=== PATIENT | female | born 1980 | race Caucasian/White ===

== ENCOUNTER 2025-03-04 07:46 | Observation (INO) ==
--- NOTE | 2025-03-04 08:12 | Emergency Department Note ---
History of Present Illness General Chief complaint: Wound Stated complaint: INFECTION ON CHIN Time Seen by Provider: 03/04/25 08:03 History of Present Illness Maximum Pain Intensity: 6 This is a 44-year-old female who presents to the emergency department via private vehicle with complaints of "infection on chin". The patient states that she thought perhaps there was a small infected hair or similar under the chin last week. However notes that this past Monday morning it was painful with edema and presented to [place] emergency department. She notes a CT scan was performed showing no abscess and she was placed on antibiotics. She continues with progressing symptoms since that time. She does note history of diabetes. No fever. Past Med/Surg History Problem List (Updated 03/04/25 @ 12:53 by Samm Maradiaga PA-C) Submental space infection (Acute) Hypothyroidism Cellulitis (Acute) Medical History No pertinent family history Diabetes HTN (hypertension) Surgical History No pertinent past surgical history Social History Smoking Status: Current every day smoker Tobacco Type: Cigarettes Preferred Language: Marshallese Feels Safe at Home: Yes Review of Systems A total of 10 systems reviewed and were otherwise negative Physical Exam Vital Signs Vital Signs - 24 hr 03/04/25 07:57 03/04/25 09:30 03/04/25 10:30 Temperature 36.3 C L Temperature Source Skin Pulse Rate 102 H Pulse Rate [Apical] 97 H 89 Respiratory Rate 17 16 16 Respiratory Effort / Characteristics Non-Labored Spontaneous Respiratory Depth Normal Normal Blood Pressure 162/86 H Blood Pressure [Right Arm] 161/93 H 134/80 Blood Pressure Mean 111 Blood Pressure Mean [Right Arm] 115 98 Blood Pressure Position [Right Arm] Semi-fowlers Semi-fowlers Pulse Oximetry 99 97 99 Oxygen Delivery Method Room Air Room Air Room Air Sepsis Recent Fever Within 48 Hours No Sepsis New/Unexplained Change in Mental Status N/A Sepsis Action Taken by Nursing No Action Required 03/04/25 10:41 03/04/25 12:00 Temperature Temperature Source Pulse Rate Pulse Rate [Apical] 104 H Respiratory Rate 16 Respiratory Effort / Characteristics Respiratory Depth Blood Pressure Blood Pressure [Right Arm] 159/108 H Blood Pressure Mean Blood Pressure Mean [Right Arm] 125 Blood Pressure Position [Right Arm] Semi-fowlers Pulse Oximetry 97 96 Oxygen Delivery Method Room Air Room Air Sepsis Recent Fever Within 48 Hours Sepsis New/Unexplained Change in Mental Status Sepsis Action Taken by Nursing VITAL SIGNS - Vital signs and nursing notes were reviewed. Hypertensive, otherwise stable and afebrile. GENERAL -44 -year-old female appearing her stated age who is in no acute distress. Communicates well with provider and answers questions appropriately. SKIN -erythema and edema noted with induration throughout the submental region centrally located just inferior to the chin. No immediate fluctuance present on exam. Small open subcentimeter wound without active drainage noted at the inferior most aspect just superior to the chin. HEAD - NC/AT. EYES - PERRL with EOMI bilaterally. Sclera anicteric. EARS - No deformities of external structures noted on gross examination bilaterally. NOSE - Midline and without cyanosis. No epistaxis or purulent drainage noted. MOUTH/OROPHARYNX - Without perioral cyanosis. Buccal mucosa pink and moist and without leukoplakia. Tongue midline with equal elevation of palate bilaterally. No tonsillar hypertrophy, erythema, or exudates noted. Fair dentition noted. NECK - Neck with FROM. Supple to palpation. Bilateral anterior cervical lymphadenopathy noted. No nuchal rigidity. LUNGS - Chest wall symmetric without accessory muscle use, intercostals retractions, or central cyanosis. Normal vesicular breath sounds CTA B/L. No wheezes, rales, or rhonchi appreciated. CARDIAC - RRR EXTREMITIES - +5/5 strength noted in UE/LE bilaterally. NEUROLOGIC - Cranial nerves II through XII grossly intact. PSYCH - alert, oriented and pleasant on exam Course Administered Medications Discontinued Medications Piperacillin Sod/Tazobactam Sod (Zosyn) 4.5 gm in 100 mls @ 200 mls/hr IV NOW ONE; Protocol Stop: 03/04/25 08:44 Last Infusion: 03/04/25 09:45 Dose: Infused Documented By: Admin: 03/04/25 09:06 Dose: 200 mls/hr Documented By: DEON Sodium Chloride (Nss) 1,000 mls @ 999 mls/hr IV .Q1H1M ONE Stop: 03/04/25 09:16 Last Infusion: 03/04/25 11:17 Dose: Infused Documented By: Admin: 03/04/25 09:06 Dose: 999 mls/hr Documented By: DEON Ioversol (Optiray 320 100ml) 94 ml IV ONCE ONE Stop: 03/04/25 10:13 Last Admin: 03/04/25 10:13 Dose: 94 ml Documented By: MIRNA Morphine Sulfate (Morphine Sulfate 4 Mg/Ml 1 Ml Carp\\Vial) 4 mg IV NOW STA Stop: 03/04/25 08:16 Last Admin: 03/04/25 09:06 Dose: 4 mg Documented By: DENO Morphine Sulfate (Morphine Sulfate 2 Mg/Ml Carp) 2 mg IV NOW STA Stop: 03/04/25 11:25 Last Admin: 03/04/25 11:42 Dose: 2 mg Documented By: DEON Ondansetron HCl (Ondansetron Inj 2 Mg/Ml 2 Ml Vial) 4 mg IV NOW STA Stop: 03/04/25 08:16 Last Admin: 03/04/25 09:06 Dose: 4 mg Documented By: DEON Ondansetron HCl (Ondansetron Inj 2 Mg/Ml 2 Ml Vial) 4 mg IV NOW STA Stop: 03/04/25 09:36 Last Admin: 03/04/25 09:51 Dose: 4 mg Documented By: DEON Medical Decision Making Laboratory Data 03/04/25 08:46 03/04/25 08:46 Lab Results 03/04/25 Range/Units 08:46 WBC 13.99 H (4.8-10.8) K/ul RBC 4.39 (4.20-5.40) M/uL Hgb 13.1 (12.0-16.0) g/dl Hct 38.7 (37.0-47.0) % MCV 88.2 (80.0-100.0) fL MCH 29.8 (25.0-34.0) pg MCHC 33.9 (32.0-36.0) g/dL RDW Std Deviation 38.5 (36.4-46.3) fL RDW Coeff of Yanet 11.9 (11.5-14.5) % Plt Count 279 (130-400) K/uL MPV 10.2 (9.4-12.4) fL Immature Gran % (Auto) 0.5 % Neut % (Auto) 79.4 % Lymph % (Auto) 13.3 % [place] % (Auto) 5.2 % Eos % (Auto) 1.0 % Baso % (Auto) 0.6 % Neut # (Auto) 11.11 H (1.40-6.50) K/uL Lymph # (Auto) 1.86 (1.20-3.40) K/uL [place] # (Auto) 0.73 H (0.11-0.59) K/uL Eos # (Auto) 0.14 (0.00-0.50) K/uL Baso # (Auto) 0.08 (0.00-0.20) K/uL Immature Gran # (Auto) 0.07 (0.01-0.20) K/uL Sodium 139 (136-145) mmol/L Potassium 3.5 (3.5-5.1) mmol/L Chloride 106 (98-107) mmol/L Carbon Dioxide 25 (21-32) mmol/L Anion Gap 8 (3-11) BUN 16 (6-23) mg/dl Creatinine 0.82 (0.6-1.2) mg/dl Est Cr Clr Drug Dosing 84.7 ml/min eGFR 90.40 BUN/Creatinine Ratio 19.5 (10-20) Glucose 144 H (70-99(Fasting)) mg/dl Lactate 1.6 (0.4-2.0) mmol/L Calcium 8.8 (8.6-10.3) mg/dl Total Bilirubin 0.6 (0.2-1.0) mg/dl AST 11 L (13-39) U/L ALT 10 (7-52) U/L Alkaline Phosphatase 74 (34-104) U/L Total Protein 6.9 (6.0-8.3) gm/dl Albumin 4.3 (3.4-5.0) gm/dl Globulin 2.6 (2.5-4.0) gm/dl Albumin/Globulin Ratio 1.7 (0.9-2) Procalcitonin 0.03 (0-0.5) ng/ml Imaging Data Radiologist's Impression: Soft Tissue Neck CT 03/04/25 08:29 CT OF THE NECK WITH IV CONTRAST CLINICAL HISTORY: Submental infection, neck pain, facial pain. COMPARISON STUDY: No previous studies for comparison. TECHNIQUE: Following IV administration of 94 mL of Optiray, helical axial images of the neck were obtained. Sagittal and coronal reconstructions were viewed. Automated exposure control was utilized for the study. A dose lowering technique was utilized adhering to the principles of ALARA. CT DOSE: 529.33 mGy.cm FINDINGS: Visualized portions of the intracranial contents are unremarkable. Mastoid air cells are clear. There is a small mucous retention cyst within the right maxillary sinus. No orbital abnormality is identified. Parotid and submandibular glands are normal. Note is made of moderate submental inflammation with a 2.7 cm focus of soft tissue thickening on image 223 of 445. There is associated thickening of the platysma. Skin thickening is noted. There is no soft tissue gas. No rim-enhancing fluid collection is present. There is an associated 6 mm midline hypodense focus within the dermis. No drainable fluid collection is present. Mildly enlarged cervical lymph nodes are present. Index left level 1 lymph node on image 244 measures 1.2 x 1.1 cm. A left level 3 lymph node on image 323 measures 1.3 x 1.1 cm. Thyroid gland is unremarkable. Lung apices are unremarkable. Major vasculature of the neck is patent. There is a periapical lucency of the left maxillary lateral incisor. No adjacent soft tissue abscess is present. IMPRESSION: 1. Moderate submental inflammation with a 2.7 cm focus of soft tissue thickening suggestive of phlegmon. No rim-enhancing fluid collection to suggest abscess. Associated cellulitis. 6 mm left hypodense focus within the dermis may represent a drainage site. No drainable fluid collection. This represents an infectious process. Although no definitive source, this may be odontogenic in etiology. A primary skin infection could appear similar. 2. Several mildly enlarged cervical lymph nodes. These are likely reactive. A follow-up neck CT in 3 months to ensure resolution is recommended. ACT 112: Negative or not required by law. Electronically signed by: Sriram Dickerson M.D. 03/04/2025 10:[address] [facility] Narrative Patient was seen and evaluated as above in room A09b. Review was performed of nursing notes and vital signs. After obtaining a thorough history and physical examination the above work up was performed. Patient presents with the above symptoms. She has edema to the submental region. This is concerning for infection. No drooling, stridor, trismus, wheezing or tripoding. Normal phonation. Options of care were discussed with the patient. IV access was established per labs were drawn. She was medicated with IV antibiotics, IV analgesia and IV antiemetics. IV fluids also ordered. CT scan soft tissue neck was obtained noting no progression of symptoms. Results as above. Moderate submental inflammation with a 2.7 cm focus suggestive of phlegmon. No definitive abscess seen. Cellulitis noted. Lymph node enlargement also noted. At this time noting progression of symptoms despite oral antibiotic therapy we will proceed with IV therapy inpatient. Case discussed with the hospitalist service. Please refer to further documentation regarding her stay. No airway compromise at this time. GCS: 15 In the evaluation and treatment of this patient, the following differential diagnoses were considered: Periapical Abscess, Osteonecrosis of the Jaw, Dental Fracture, Dental Caries, Sy's Angina, Vincent's Angina, Facial Cellulitis, among others Impression & Plan Submental space infection, Cellulitis Discharge Plan Visit Data Chief Complaint: Wound Stated Complaint: INFECTION ON CHIN ED Provider: Roland Sanchez ED Midlevel Provider: Samm Maradiaga Discharge Problem: Submental space infection, Cellulitis Patient Disposition: Admitted As Inpatient Condition: Good Forms Stand Alone Forms: [facility] Referrals Referrals: Emanuel Koenig DO [Primary Care Provider] -
[2025-03-04 09:02] LABS: Hematocrit (blood only) 38.7 % (37.0-47.0); Hemoglobin 13.1 g/dl (12.0-16.0); Immature Granulocytes # (auto) 0.07 K/uL (0.01-0.20); Immature Granulocytes % (auto) 0.5 %; Mean Corpuscular Hemoglobin 29.8 pg (25.0-34.0); Mean Corpuscular Volume 88.2 fL (80.0-100.0); Platelet Count 279 K/uL (130-400); RDW Standard Deviation 38.5 fL (36.4-46.3); Red Blood Count 4.39 M/uL (4.20-5.40); White Blood Count 13.99 K/ul (4.8-10.8)
[2025-03-04] MEDS: PIPERACILLIN/TAZOBACTAM 4.5 GM/100 ML BAG IV ONE (09:06)
[2025-03-04] MEDS: ONDANSETRON INJ 2 MG/ML 2 ML VIAL IV STA ×3 (09:06→14:49)
[2025-03-04] MEDS: SODIUM CHLORIDE 0.9% 1,000 ML IV ONE (09:06)
[2025-03-04] MEDS: MoRPHine SULFATE 4 MG/ML 1 ML CARP\\VIAL IV STA (09:06)
[2025-03-04 09:20] LABS: Alanine Aminotransferase 10.0 U/L (7-52); Albumin Globulin Ratio 1.7 (0.9-2); Albumin Level 4.3 gm/dl (3.4-5.0); Alkaline Phosphatase 74.0 U/L (34-104); Anion Gap 8.0 (3-11); Bilirubin,Total 0.6 mg/dl (0.2-1.0); Blood Urea Nitrogen 16.0 mg/dl (6-23); Calcium 8.8 mg/dl (8.6-10.3); Carbon Dioxide 25.0 mmol/L (21-32); Chloride 106.0 mmol/L (98-107); Creatinine Clr Calc Pharmacy 84.7 ml/min; Globulin 2.6 gm/dl (2.5-4.0); Glucose 144.0 mg/dl (70-99(Fasting)); Potassium 3.5 mmol/L (3.5-5.1); Sodium 139.0 mmol/L (136-145); Total Protein 6.9 gm/dl (6.0-8.3)
[2025-03-04] MEDS: OPTIRAY 320 100ml IV ONE (10:13)
--- NOTE | 2025-03-04 10:37 | CT Scan Report ---
CT OF THE NECK WITH IV CONTRAST CLINICAL HISTORY: Submental infection, neck pain, facial pain. COMPARISON STUDY: No previous studies for comparison. TECHNIQUE: Following IV administration of 94 mL of Optiray, helical axial images of the neck were ob tained. Sagittal and coronal reconstructions were viewed. Automated exposure control was utilized f or the study. A dose lowering technique was utilized adhering to the principles of ALARA. CT DOSE: 529.33 mGy.cm FINDINGS: Visualized portions of the intracranial contents are unremarkable. Mastoid air cells are c lear. There is a small mucous retention cyst within the right maxillary sinus. No orbital abnormality is identified. Parotid and submandibular glands are normal. Note is made of moderate submental infla mmation with a 2.7 cm focus of soft tissue thickening on image 223 of 445. There is associated thicke maryann of the platysma. Skin thickening is noted. There is no soft tissue gas. No rim-enhancing fluid c ollection is present. There is an associated 6 mm midline hypodense focus within the dermis. No drain able fluid collection is present. Mildly enlarged cervical lymph nodes are present. Index left level 1 lymph node on image 244 measures 1.2 x 1.1 cm. A left level 3 lymph node on image 323 measures 1.3 x 1.1 cm. Thyroid gland is unremarkable. Lung apices are unremarkable. Major vasculature of the neck is patent. There is a periapical lucency of the left maxillary lateral incisor. No adjacent soft tiss ue abscess is present. IMPRESSION: 1. Moderate submental inflammation with a 2.7 cm focus of soft tissue thickening suggestive of phlegm on. No rim-enhancing fluid collection to suggest abscess. Associated cellulitis. 6 mm left hypodense focus within the dermis may represent a drainage site. No drainable fluid collection. This represents an infectious process. Although no definitive source, this may be odontogenic in etiology. A primary skin infection could appear similar. 2. Several mildly enlarged cervical lymph nodes. These are likely reactive. A follow-up neck CT in 3 months to ensure resolution is recommended. ACT 112: Negative or not required by law. Electronically signed by: Sriram Dickerson M.D. 03/04/2025 10:35 AM
[2025-03-04] MEDS: MoRPHine SULFATE 2 MG/ML CARP IV STA (11:42)
--- NOTE | 2025-03-04 12:22 | Communication Note ---
Date of Service: March 04, 2025 Attending Addendum: Case reviewed with the advanced practitioner. I have personally performed a history and physical examination on the patient. I have reviewed the advanced practitioner's documentation on the date of service referenced in note, and I agree with, and take responsibility for the plan of care. please refer to her notes for full details patient seen and examined, records reviewed by myself as well on exam, patient seen resting in bed, not in distress having some pain over the submental region but morphine helped no dysphagia, or shortness of breath no tooth pain no other symptoms VS noted and reviewed oriented x3, not in distress, speaks in sentences with no effort nor accessory muscle use neck- small fluctuant mass, mid submental region, with moderate erythema normal rate, regular rhythm, no murmurs clear breath sounds bilaterally non distended, soft, nontender no bipedal edema, erythema, warmth no neuro deficits all labs, imaging noted and reviewed ASSESSMENT AND PLAN> SUBMENTAL CELLULITIS WITH PHLEGMON DM 2 - does not meet sepsis criteria at this point - no definite abscess seen on CT neck - blood cultures ordered - because of location, will give broad coverage: Dapto + Zosyn - Dr Gr consulted - pain control HTN - on Metoprolol other diagnoses and plan of care as per advanced practitioner's notes I spent a total of 40 minutes coordinating, documenting, and providing care for this patient, excluding time spent in the performance of separately billed services or time spent by another provider/QHP. Alonso Montero MD
--- NOTE | 2025-03-04 12:34 | History & Physical Report ---
Date of Service March 04, 2025 Assessment & Plan (1) Submental space infection: (2) Diabetes: (3) HTN (hypertension): Plan 44 y/o F that presents to the ED after experiencing worsening submental pain and spreading of a wound that spontaneously, starting on Friday 03/02. She is a known insulin dependent diabetic. Submental space infection: Worsening submental phlegmon with lymphadenopathy Leukocytosis: 13.99 Lactate normal 1.6 SpO2 97%, continuous pulse ox monitoring Soft Tissue CT: Moderate submental inflammation with a 2.7 cm focus of soft tissue thickening suggestive of phlegmon. No rim-enhancing fluid collection to suggest abscess. Associated cellulitis. 6 mm left hypodense focus within the dermis may represent a drainage site. No drainable fluid collection. This represents an infectious process. Although no definitive source, this may be odontogenic in etiology. A primary skin infection could appear similar. Several mildly enlarged cervical lymph nodes. These are likely reactive. A follow-up neck CT in 3 months to ensure resolution is recommended. Started on Zosyn for pseudomonas coverage. Add IV Dapto for possible MRSA given location MRSA swab ordered for wound Maxillofacial consult with Dr. Gr ordered Insulin Dependent Diabetes, Type 2: Chronic Unknown A1c; check while here Takes Lantus 30 units AM/PM Takes Humalog Kwikpen 15 units SQ TID with meals ACHS FSBS while inpt Glycemic pharmacy HTN: Chronic takes Losartan, Metoprolol and HCTZ; continue Disposition: PCP: Dr. Hernandez Code Status: Full Code VTE prophylaxis: Teds and SCDs for now I spent a total of 78 minutes coordinating, documenting, and providing care for this patient excluding time spent inthe performance of separately billed services or time spent by another provider/QHP. History of Present Illness Chief Complaint: submental pain/wound Primary Care Provider: Emanuel Koenig DO Pt is a 44 year old female that presents to the ED after experiencing worsening submental pain and spreading of a wound that spontaneously occured on Monday03/02/25. She originally went to [facility] and underwent a CT and was given a dose of IV antibiotics and sent home on Bactrim, which she has taken three doses. reportedly, no abscess was identified on the CT scan. Originally the red spot under the chin has progressed into a submental soft tissue erythematous and swollen area. She reports that the wound has worsened over the past 48 hours. She did show photos which revealed that the swelling and wound has progressed. Past medical history includes insulin-dependent diabetes type 2, and HTN. In the ED she was started on IV Zosyn for Pseudomonas coverage and she received 1 L NS. She received Morphine for pain control. Mild leukocytosis 13.99 otherwise labs unremarkable. No elevated lactate, no elevated procalcitonin. Soft tissue neck CT revealed: moderate submental inflammation with a 2.7 cm focus of soft tissue thickening suggestive of phlegmon. No rim-enhancing fluid collection to suggest abscess. Associated cellulitis. 6 mm left hypodense focus within the dermis may represent a drainage site. No drainable fluid collection. This represents an infectious process. Although no definitive source, this may be odontogenic in etiology. A primary skin infection could appear similar. Several mildly enlarged cervical lymph nodes. These are likely reactive. A follow-up neck CT in 3 months to ensure resolution is recommended. Reports tobacco use 1 ppd, no alcohol or recreational drug use. On examination, she No signs of airway compromise at this time, SpO2 97% on room air. Patient will be admitted for further evaluation and management of her soft tissue cellulitis with pain control, blood cultures, MRSA coverage with IV Dapto and oromaxillary surgery consult. Please see A/P for further details. Home Medications Medication Instructions Recorded Confirmed Type Ventolin HFA 90 mcg PO Q4H PRN SOB 03/04/25 03/04/25 History hydrochlorothiazide 25 mg tablet 25 mg PO DAILY 03/04/25 03/04/25 History insulin glargine 100 unit/mL (3 30 unit subcut BID 03/04/25 03/04/25 History mL) subcutaneous pen (Lantus Solostar U-100 Insulin) insulin lispro 100 unit/mL 15 unit subcut TID 03/04/25 03/04/25 History subcutaneous pen (Humalog KwikPen (U-100) Insulin) losartan 50 mg tablet 50 mg PO DAILY 03/04/25 03/04/25 History metoprolol tartrate 50 mg tablet 50 mg PO BID 03/04/25 03/04/25 History sulfamethoxazole 800 1 tab PO BID 03/04/25 03/04/25 History mg-trimethoprim 160 mg tablet tirzepatide 15 mg/0.5 mL 15 mg subcut WK 03/04/25 03/04/25 History subcutaneous pen injector (Mounjaro) Past Med/Surg History Problem List (Updated 03/04/25 @ 12:53 by Samm Maradiaga PA-C) Submental space infection (Acute) Hypothyroidism Cellulitis (Acute) Medical History No pertinent family history Diabetes HTN (hypertension) Surgical History No pertinent past surgical history Social History Smoking Status: Current every day smoker Tobacco Type: Cigarettes Preferred Language: Azerbaijani Feels Safe at Home: Yes Review of Systems Review of Systems: Neuro: (-) Falls, trauma, slurred speech HEENT: (-) MULLINS, dizziness, dysphagia, visual or auditory changes CV: (-) CP, palpitations, swelling Resp: (-) SOB GI: (-) appetite changes, N/V/D, bowel changes : (-) urinary changes Skin: (-) rashes (+) open wound submental (-) malodor Psych: (-) anxiety, depression Physical Exam Physical Exam: Neuro: AAOx4, PERRLA, no aphagia, memory changes, CNII-XII grossly intact. (+) submental lymphadenopathy HEENT: head normocephalic, moist mucus membranes CV: S1/S2, (-) M/G/R, (-) edema, cap refill < 3 seconds Resp: Lungs CTA in all potter. On RA GI: Abdomen S/NT/ND, Ax4 bowel sounds, (-) CVA tenderness Musculoskeletal: 5/5 B/L UE strength, 5/5 B/L LE strength. No gait disturbance Skin: (-) rashes , (+) erythema (+) open eraser sized wound with minimal drainage. Psych: euthymic mood Results & Data Results & Data Vital Signs (Past 12 Hours) Vital Signs Temp Pulse Pulse Resp BP BP Pulse Ox 03/04/25 12:00 104 H 16 159/108 H 96 03/04/25 10:41 97 03/04/25 10:30 89 16 134/80 99 03/04/25 09:30 97 H 16 161/93 H 97 03/04/25 07:57 36.3 C L 102 H 17 162/86 H 99 O2 Del Method 03/04/25 12:00 Room Air 03/04/25 10:41 Room Air 03/04/25 10:30 Room Air 03/04/25 09:30 Room Air 03/04/25 07:57 Room Air Laboratory Results Short CBC 03/04/25 Range/Units 08:46 WBC 13.99 H (4.8-10.8) K/ul Hgb 13.1 (12.0-16.0) g/dl Hct 38.7 (37.0-47.0) % Plt Count 279 (130-400) K/uL BMP 03/04/25 08:46 Sodium 139 Potassium 3.5 Chloride 106 Carbon Dioxide 25 BUN 16 Creatinine 0.82 Glucose 144 H Calcium 8.8 Liver Function 03/04/25 Range/Units 08:46 Total Bilirubin 0.6 (0.2-1.0) mg/dl AST 11 L (13-39) U/L ALT 10 (7-52) U/L Alkaline Phosphatase 74 (34-104) U/L Albumin 4.3 (3.4-5.0) gm/dl Diagnostic Findings Soft Tissue Neck CT 03/04/25 08:29 CT OF THE NECK WITH IV CONTRAST CLINICAL HISTORY: Submental infection, neck pain, facial pain. COMPARISON STUDY: No previous studies for comparison. TECHNIQUE: Following IV administration of 94 mL of Optiray, helical axial images of the neck were obtained. Sagittal and coronal reconstructions were viewed. Automated exposure control was utilized for the study. A dose lowering technique was utilized adhering to the principles of ALARA. CT DOSE: 529.33 mGy.cm FINDINGS: Visualized portions of the intracranial contents are unremarkable. Mastoid air cells are clear. There is a small mucous retention cyst within the right maxillary sinus. No orbital abnormality is identified. Parotid and submandibular glands are normal. Note is made of moderate submental inflammation with a 2.7 cm focus of soft tissue thickening on image 223 of 445. There is associated thickening of the platysma. Skin thickening is noted. There is no soft tissue gas. No rim-enhancing fluid collection is present. There is an associated 6 mm midline hypodense focus within the dermis. No drainable fluid collection is present. Mildly enlarged cervical lymph nodes are present. Index left level 1 lymph node on image 244 measures 1.2 x 1.1 cm. A left level 3 lymph node on image 323 measures 1.3 x 1.1 cm. Thyroid gland is unremarkable. Lung apices are unremarkable. Major vasculature of the neck is patent. There is a periapical lucency of the left maxillary lateral incisor. No adjacent soft tissue abscess is present. IMPRESSION: 1. Moderate submental inflammation with a 2.7 cm focus of soft tissue thickening suggestive of phlegmon. No rim-enhancing fluid collection to suggest abscess. Associated cellulitis. 6 mm left hypodense focus within the dermis may represent a drainage site. No drainable fluid collection. This represents an infectious process. Although no definitive source, this may be odontogenic in etiology. A primary skin infection could appear similar. 2. Several mildly enlarged cervical lymph nodes. These are likely reactive. A follow-up neck CT in 3 months to ensure resolution is recommended. ACT 112: Negative or not required by law. Electronically signed by: Sriram Dickerson M.D. 03/04/2025 10:35 AM Code Status & VTE Plan Code Status Full Code in the event of cardiac or respiratory arrest. VTE Prophylaxis Plan VTE Prophylaxis will be ordered: Yes
[2025-03-04] MEDS: DAPTOmycin 500 MG in SYRINGE 0 ML IV SCH (13:33)
[2025-03-04] MEDS ORDERED: ALUMINUM/MAGNESIUM SUSP 30 ML UDC PO PRN (15:17)
[2025-03-04] MEDS ORDERED: ONDANSETRON INJ 2 MG/ML 2 ML VIAL IV PRN (15:17)
[2025-03-04] MEDS ORDERED: MAGNESIUM HYDROXIDE SUSP 30 ML UDC PO PRN (15:17)
[2025-03-04] MEDS: MoRPHine SULFATE 2 MG/ML CARP IV PRN (15:41)
[2025-03-04] MEDS: hydroCHLOROthiazide 25 MG TAB PO SCH (16:16)
[2025-03-04] MEDS: LOSARTAN POTASSIUM 50 MG TAB PO SCH (16:17)
[2025-03-04] MEDS: INSULIN ASPART PER UNIT CHARGE SQ SCH (17:20)
[2025-03-04] MEDS: LANTUS PER UNIT CHARGE SC SCH (18:45)
[2025-03-04] MEDS: METOPROLOL TARTRATE 50 MG TAB PO SCH (19:48)
[2025-03-05] MEDS: ACETAMINOPHEN 325 MG TAB PO PRN (07:33)
[2025-03-05 08:09] LABS: Hematocrit (blood only) 38.5 % (37.0-47.0); Hemoglobin 13.0 g/dl (12.0-16.0); Mean Corpuscular Hemoglobin 30.2 pg (25.0-34.0); Mean Corpuscular Volume 89.3 fL (80.0-100.0); Platelet Count 294 K/uL (130-400); RDW Standard Deviation 39.0 fL (36.4-46.3); Red Blood Count 4.31 M/uL (4.20-5.40); White Blood Count 9.22 K/ul (4.8-10.8)
[2025-03-05] MEDS: ONDANSETRON INJ 2 MG/ML 2 ML VIAL IV PRN (08:23)
--- NOTE | 2025-03-05 08:29 | Oral/Maxillofacial Consult ---
Date of Consultation March 05, 2025 Assessment & Plan (1) Submental space infection: (2) Cellulitis: History of Present Illness Attending Physician: Sydney Tucker MD History of Present Illness I was asked to consult on this 44-year-old patient with a submental swelling. I reviewed the CT scan and confirmed that it is not coming from an odontogenic origin. As a matter fact her teeth are in extremely good shape. There is no periodontal disease or issues in the floor of the mouth. She does smoke a lot and there is some leukoplakic changes in the anterior floor of the mouth which I discussed with her. Regarding the submental edema this looks to be a lesion such as a small pimple hair follicle that got infected. She showed me some pictures that she took a few days ago showing that it started out as a little red dot and progressed into the overall cellulitis that is present now. I have a suspicion that we are dealing with a MRSA infection. Presently there is no duration to consider a drainage. In my experience a lot of these MRSA like lesions will spontaneously drain therapy and take a few weeks to finally subside with good antibiotic. My plan is to continue to round on Rhianon and consider in a incision and drainage if necessary. I would suggest heat massage and antibiotics as appropriate. Assessment & Plan (1) Submental space infection: (2) Diabetes: (3) HTN (hypertension): Pt is a 44 year old female that presents to the ED after experiencing worsening submental pain and spreading of a wound that spontaneously occured on Monday03/02/25. She originally went to [facility] and underwent a CT and was given a dose of IV antibiotics and sent home on Bactrim, which she has taken three doses. reportedly, no abscess was identified on the CT scan. Originally the red spot under the chin has progressed into a submental soft tissue erythematous and swollen area. She reports that the wound has worsened over the past 48 hours. She did show photos which revealed that the swelling and wound has progressed. Past medical history includes insulin-dependent diabetes type 2, and HTN. In the ED she was started on IV Zosyn for Pseudomonas coverage and she received 1 L NS. She received Morphine for pain control. Mild leukocytosis 13.99 otherwise labs unremarkable. No elevated lactate, no elevated procalcitonin. Soft tissue neck CT revealed: moderate submental inflammation with a 2.7 cm focus of soft tissue thickening suggestive of phlegmon. No rim-enhancing fluid collection to suggest abscess. Associated cellulitis. 6 mm left hypodense focus within the dermis may represent a drainage site. No drainable fluid collection. This represents an infectious process. Although no definitive source, this may be odontogenic in etiology. A primary skin infection could appear similar. Several mildly enlarged cervical lymph nodes. These are likely reactive. A follow-up neck CT in 3 months to ensure resolution is recommended. Reports tobacco use 1 ppd, no alcohol or recreational drug use. On examination, she No signs of airway compromise at this time, SpO2 97% on room air. Patient will be admitted for further evaluation and management of her soft tissue cellulitis with pain control, blood cultures, MRSA coverage with IV Dapto and oromaxillary surgery consult. Please see A/P for further details. Submental space infection: Worsening submental phlegmon with lymphadenopathy Leukocytosis: 13.99 Lactate normal 1.6 SpO2 97%, continuous pulse ox monitoring Soft Tissue CT: Moderate submental inflammation with a 2.7 cm focus of soft tissue thickening suggestive of phlegmon. No rim-enhancing fluid collection to suggest abscess. Associated cellulitis. 6 mm left hypodense focus within the dermis may represent a drainage site. No drainable fluid collection. This represents an infectious process. Although no definitive source, this may be odontogenic in etiology. A primary skin infection could appear similar. Several mildly enlarged cervical lymph nodes. These are likely reactive. A follow-up neck CT in 3 months to ensure resolution is recommended. Started on Zosyn for pseudomonas coverage. Add IV Dapto for possible MRSA given location MRSA swab ordered for wound Maxillofacial consult with Dr. Gr ordered Insulin Dependent Diabetes, Type 2: Chronic Unknown A1c; check while here Takes Lantus 30 units AM/PM Takes Humalog Kwikpen 15 units SQ TID with meals ACHS FSBS while inpt Glycemic pharmacy HTN: Chronic takes Losartan, Metoprolol and HCTZ; continue Allergies Allergy/AdvReac Type Severity Reaction Status Date / Time No Known Allergies Allergy Unverified 03/04/25 15:36 Home Medications Medication Instructions Recorded Confirmed Type Ventolin HFA 90 mcg PO Q4H PRN SOB 03/04/25 03/04/25 History hydrochlorothiazide 25 mg tablet 25 mg PO DAILY 03/04/25 03/04/25 History insulin glargine 100 unit/mL (3 20 unit subcut BID 03/04/25 03/05/25 History mL) subcutaneous pen (Lantus Solostar U-100 Insulin) insulin lispro 100 unit/mL See Rx Instructions .Route .COMPLEX 03/04/25 03/05/25 History subcutaneous pen (Humalog KwikPen (U-100) Insulin) losartan 50 mg tablet 50 mg PO DAILY 03/04/25 03/04/25 History metoprolol tartrate 50 mg tablet 50 mg PO BID 03/04/25 03/04/25 History tirzepatide 15 mg/0.5 mL 15 mg subcut WK 03/04/25 03/04/25 History subcutaneous pen injector (Mounjaro) linezolid 600 mg tablet 600 mg PO BID #14 tabs 03/07/25 Rx ondansetron 4 mg disintegrating 4 mg PO DAILY PRN nausea and 03/07/25 Rx tablet vomiting 4 days #20 tabs oxycodone 5 mg tablet 5 mg PO Q8H PRN pain #10 tabs 03/07/25 Rx Patient History Medical History No pertinent family history Diabetes HTN (hypertension) Surgical History No pertinent past surgical history Social History Smoking Status: Current every day smoker Tobacco Type: Cigarettes Hx Alcohol Use: No Hx Substance Use: No Preferred Language: Mongolian Communication Ability: Effective Product Development Director Required: No Beliefs That Will Affect Care: None Current Living Situation: Significant Other Feels Safe at Home: Yes Safety Concerns: Feels Safe At This Time Assistive Devices: None Results & Data Vital Signs (Past 12 Hours) Vital Signs Temp Pulse Pulse Resp BP BP Pulse Ox 03/05/25 07:15 36.8 C 76 18 146/81 H 97 03/05/25 07:00 69 03/05/25 03:27 37.4 C 75 14 154/83 H 95 03/04/25 23:38 36.8 C 75 14 150/85 H 97 03/04/25 22:00 69 O2 Del Method 03/05/25 07:15 Room Air 03/05/25 07:00 03/05/25 03:27 Room Air 03/04/25 23:38 Room Air 03/04/25 22:00 PG Care Time/CCT Total # of Minutes Spent Total Time Spent with Patient: Total time spent is greater than 50% in coordination of care (as documented) at patient's floor/unit and/or counseling patient: Coding Level of Care Code 64647 IN/OBS CONSULT LVL 2,35M Diagnoses Submental space infection K12.2 Cellulitis of face L03.211 Site of cellulitis: face (2) Cellulitis Site of cellulitis: face Qualified Code(s): L03.211 - Cellulitis of face
[2025-03-05 09:05] LABS: Anion Gap 7.0 (3-11); Blood Urea Nitrogen 10.0 mg/dl (6-23); Calcium 9.2 mg/dl (8.6-10.3); Carbon Dioxide 28.0 mmol/L (21-32); Chloride 101.0 mmol/L (98-107); Creatinine Clr Calc Pharmacy 87.0 ml/min; Glucose 82.0 mg/dl (70-99(Fasting)); Potassium 4.6 mmol/L (3.5-5.1); Sodium 136.0 mmol/L (136-145)
[2025-03-05] MEDS ORDERED: INSULIN ASPART PER UNIT CHARGE SQ SCH (10:00)
[2025-03-05 10:27] LABS: Hemoglobin A1C 5.9 % (4.5-5.6)
[2025-03-05] MEDS: INSULIN ASPART PER UNIT CHARGE SC SCH (10:38)
[2025-03-05] MEDS: DAPTOmycin 500 MG in SYRINGE 0 ML IV SCH (11:34)
--- NOTE | 2025-03-05 13:25 | Hospitalist Progress Note ---
Date of Service March 05, 2025 Assessment & Plan (1) Submental space infection: (2) Diabetes: (3) HTN (hypertension): Plan Ms. Poe is a 44 year old woman that presents to the ED after experiencing worsening submental pain and spreading of a wound that spontaneously, starting on Friday 03/02. Patient evaluated by Dr. Gr--there are no plans for I&D. Culture obtained today. Plan to continue IV antibiotics. #Submental phlegmon with lymphadenopathy Leukocytosis: 13.99 Lactate normal 1.6 SpO2 97%, continuous pulse ox monitoring Soft Tissue CT: Moderate submental inflammation with a 2.7 cm focus of soft tissue thickening suggestive of phlegmon. No rim-enhancing fluid collection to suggest abscess. Associated cellulitis. 6 mm left hypodense focus within the dermis may represent a drainage site. No drainable fluid collection. This represents an infectious process. Although no definitive source, this may be odontogenic in etiology. A primary skin infection could appear similar. Several mildly enlarged cervical lymph nodes. These are likely reactive. A follow-up neck CT in 3 months to ensure resolution is recommended. Continue IV abx Follow up wound cutures Dr Gr: no intervention #Insulin Dependent Diabetes, Type 2: Chronic Unknown A1c; 5.9% Takes Lantus 9 units AM/PM Takes Humalog Kwikpen 9-15-25 units SQ TID with meals ACHS FSBS while inpt Glycemic pharmacy #HTN: Chronic takes Losartan, Metoprolol and HCTZ; continue Disposition: PCP: Dr. Hernandez Code Status: Full Code VTE prophylaxis: Teds and SCDs for now Admission and Anticipated Discharge Date Admission Date: March 04, 2025 Subjective Reports significant improvement overnight however still some swelling in face and nexk, but much improved no fevers, chills, nausea or vomiting Physical Exam Constitutional: WD/WN, vitals as above Neck: open wound with purulent drainage Respiratory: normal respiratory effort, lungs clear to auscultation Cardiovascular: RRR, no murmur, no edema Gastrointestinal (Abdomen): normal bowel sounds, soft, nontender, no hepatosplenomegaly Results & Data Results & Data Vital Signs (Past 12 Hours) Vital Signs Temp Pulse Pulse Resp BP BP Pulse Ox 03/05/25 08:00 03/05/25 07:15 36.8 C 76 18 146/81 H 97 03/05/25 07:00 69 03/05/25 03:27 37.4 C 75 14 154/83 H 95 O2 Del Method 03/05/25 08:00 Room Air 03/05/25 07:15 Room Air 03/05/25 07:00 03/05/25 03:27 Room Air Laboratory Results Short CBC 03/05/25 Range/Units 06:50 WBC 9.22 (4.8-10.8) K/ul Hgb 13.0 (12.0-16.0) g/dl Hct 38.5 (37.0-47.0) % Plt Count 294 (130-400) K/uL BMP 03/05/25 06:50 Sodium 136 Potassium 4.6 D Chloride 101 Carbon Dioxide 28 BUN 10 Creatinine 0.80 Glucose 82 Calcium 9.2 Medications Administered Home Medications Medication Instructions Recorded Confirmed Last Taken Ventolin HFA 90 mcg PO Q4H PRN SOB 03/04/25 03/04/25 Unknown hydrochlorothiazide 25 mg tablet 25 mg PO DAILY 03/04/25 03/04/25 Unknown insulin glargine 100 unit/mL (3 20 unit subcut BID 03/04/25 03/05/25 Unknown mL) subcutaneous pen (Lantus Solostar U-100 Insulin) insulin lispro 100 unit/mL See Rx Instructions .Route .COMPLEX 03/04/25 03/05/25 Unknown subcutaneous pen (Humalog KwikPen (U-100) Insulin) losartan 50 mg tablet 50 mg PO DAILY 03/04/25 03/04/25 Unknown metoprolol tartrate 50 mg tablet 50 mg PO BID 03/04/25 03/04/25 Unknown sulfamethoxazole 800 1 tab PO BID 03/04/25 03/04/25 Unknown mg-trimethoprim 160 mg tablet tirzepatide 15 mg/0.5 mL 15 mg subcut WK 03/04/25 03/04/25 Unknown subcutaneous pen injector (Lela) Active Medications Generic Name Dose Route Start Last Admin Trade Name Freq PRN Reason Stop Dose Admin Acetaminophen 650 mg 03/04/25 15:17 03/05/25 07:33 Acetaminophen 325 Mg Tab PO 04/03/25 15:16 650 mg Q4H PRN Administration Pain or Fever Hydrochlorothiazide 25 mg 03/04/25 14:00 03/05/25 08:20 Hydrochlorothiazide 25 Mg Tab PO 04/03/25 13:59 25 mg DAILY LITA Administration Daptomycin 500 mg/ Syringe 10 mls @ 5 mls/min 03/05/25 12:00 03/05/25 11:34 IV 03/12/25 11:59 5 mls/min Q24H LITA Administration Protocol Insulin Aspart 0 units 03/05/25 11:30 03/05/25 10:38 Insulin Aspart Per Unit Charge SC 04/04/25 11:29 Not Given ACHS LITA Insulin Glargine 30 units 03/04/25 21:00 03/05/25 09:42 Lantus Per Unit Charge SC 04/03/25 20:59 Not Given BID LITA Losartan Potassium 50 mg 03/04/25 14:00 03/05/25 07:33 Losartan Potassium 50 Mg Tab PO 04/03/25 13:59 50 mg DAILY LITA Administration Metoprolol Tartrate 50 mg 03/04/25 21:00 03/05/25 07:33 Metoprolol Tartrate 50 Mg Tab PO 04/03/25 20:59 50 mg BID LITA Administration Morphine Sulfate 2 mg 03/04/25 12:23 03/05/25 10:40 Morphine Sulfate 2 Mg/Ml Carp IV 03/18/25 12:22 2 mg Q4H PRN Administration Pain Ondansetron HCl 4 mg 03/04/25 13:38 03/05/25 08:23 Ondansetron Inj 2 Mg/Ml 2 Ml Vial IV 04/03/25 13:37 4 mg Q6H PRN Administration Nausea And Vomiting
[2025-03-06 07:25] LABS: Hematocrit (blood only) 40.7 % (37.0-47.0); Hemoglobin 13.8 g/dl (12.0-16.0); Mean Corpuscular Hemoglobin 29.9 pg (25.0-34.0); Mean Corpuscular Volume 88.3 fL (80.0-100.0); Platelet Count 345 K/uL (130-400); RDW Standard Deviation 38.5 fL (36.4-46.3); Red Blood Count 4.61 M/uL (4.20-5.40); White Blood Count 8.52 K/ul (4.8-10.8)
[2025-03-06 07:51] LABS: Anion Gap 6.0 (3-11); Blood Urea Nitrogen 17.0 mg/dl (6-23); Calcium 9.4 mg/dl (8.6-10.3); Carbon Dioxide 30.0 mmol/L (21-32); Chloride 100.0 mmol/L (98-107); Creatinine Clr Calc Pharmacy 86.8 ml/min; Glucose 93.0 mg/dl (70-99(Fasting)); Potassium 4.5 mmol/L (3.5-5.1); Sodium 136.0 mmol/L (136-145)
[2025-03-06] MEDS: LANTUS PER UNIT CHARGE SC SCH (09:43)
--- NOTE | 2025-03-06 11:42 | Hospitalist Progress Note ---
Date of Service March 06, 2025 Assessment & Plan (1) Submental space infection: (2) Diabetes: (3) HTN (hypertension): Plan Ms. Poe is a 44 year old woman that presents to the ED after experiencing worsening submental pain and spreading of a wound that spontaneously, starting on Friday 03/02. Patient evaluated by Dr. Gr--there are no plans for I&D. Culture with MRSA. Plan to continue IV antibiotics. Plan to possible dispo on po abx tomorrow, given transformation of lesion will continue one more day of abx. #Submental phlegmon with lymphadenopathy #MRSA Leukocytosis: 13.99 Lactate normal 1.6 SpO2 97%, continuous pulse ox monitoring Soft Tissue CT: Moderate submental inflammation with a 2.7 cm focus of soft tissue thickening suggestive of phlegmon. No rim-enhancing fluid collection to suggest abscess. Associated cellulitis. 6 mm left hypodense focus within the dermis may represent a drainage site. No drainable fluid collection. This represents an infectious process. Although no definitive source, this may be odontogenic in etiology. A primary skin infection could appear similar. Several mildly enlarged cervical lymph nodes. These are likely reactive. A follow-up neck CT in 3 months to ensure resolution is recommended. contact precations, continue IV dapto like dispo on linezolid Follow up wound cutures Dr Gr: no intervention #Insulin Dependent Diabetes, Type 2: Chronic Unknown A1c; 5.9% Takes Lantus 9 units AM/PM Takes Humalog Kwikpen 9-15-25 units SQ TID with meals ACHS FSBS while inpt Glycemic pharmacy #HTN: Chronic takes Losartan, Metoprolol and HCTZ; continue Disposition: PCP: Dr. Hernandez Code Status: Full Code VTE prophylaxis: Teds and SCDs for now Admission and Anticipated Discharge Date Admission Date: March 04, 2025 Subjective Reports swelling in face appears to have improved, however doesn't feel well generally noted purulent pocket forming at site of drainage Reports some upset stomach, but tolerating oral intake at this time Physical Exam Constitutional: WD/WN, vitals as above ENMT: area of purulence forming into pocket, with improved swelling of submental space Respiratory: normal respiratory effort, lungs clear to auscultation Cardiovascular: RRR, no murmur, no edema Results & Data Results & Data Vital Signs (Past 12 Hours) Vital Signs Temp Pulse Pulse Resp BP BP Pulse Ox 03/06/25 11:15 36.7 C 75 20 134/82 91 03/06/25 07:41 70 03/06/25 07:32 36.6 C 69 18 115/73 95 03/06/25 05:17 81 03/06/25 03:20 36.4 C L 77 20 110/69 97 03/06/25 00:01 36.6 C 82 20 115/75 96 O2 Del Method 03/06/25 11:15 Room Air 03/06/25 07:41 03/06/25 07:32 Room Air 03/06/25 05:17 03/06/25 03:20 Room Air 03/06/25 00:01 Room Air Laboratory Results Short CBC 03/06/25 Range/Units 05:37 WBC 8.52 (4.8-10.8) K/ul Hgb 13.8 (12.0-16.0) g/dl Hct 40.7 (37.0-47.0) % Plt Count 345 (130-400) K/uL BMP 03/06/25 05:37 Sodium 136 Potassium 4.5 Chloride 100 Carbon Dioxide 30 BUN 17 Creatinine 0.80 Glucose 93 Calcium 9.4 Medications Administered Home Medications Medication Instructions Recorded Confirmed Last Taken Ventolin HFA 90 mcg PO Q4H PRN SOB 03/04/25 03/04/25 Unknown hydrochlorothiazide 25 mg tablet 25 mg PO DAILY 03/04/25 03/04/25 Unknown insulin glargine 100 unit/mL (3 20 unit subcut BID 03/04/25 03/05/25 Unknown mL) subcutaneous pen (Lantus Solostar U-100 Insulin) insulin lispro 100 unit/mL See Rx Instructions .Route .COMPLEX 03/04/25 03/05/25 Unknown subcutaneous pen (Humalog KwikPen (U-100) Insulin) losartan 50 mg tablet 50 mg PO DAILY 03/04/25 03/04/25 Unknown metoprolol tartrate 50 mg tablet 50 mg PO BID 03/04/25 03/04/25 Unknown sulfamethoxazole 800 1 tab PO BID 03/04/25 03/04/25 Unknown mg-trimethoprim 160 mg tablet tirzepatide 15 mg/0.5 mL 15 mg subcut WK 03/04/25 03/04/25 Unknown subcutaneous pen injector (Mounjaro) Active Medications Generic Name Dose Route Start Last Admin Trade Name Guicho PRN Reason Stop Dose Admin Acetaminophen 650 mg 03/04/25 15:17 03/05/25 16:29 Acetaminophen 325 Mg Tab PO 04/03/25 15:16 650 mg Q4H PRN Administration Pain or Fever Hydrochlorothiazide 25 mg 03/04/25 14:00 03/06/25 10:20 Hydrochlorothiazide 25 Mg Tab PO 04/03/25 13:59 25 mg DAILY LITA Administration Daptomycin 500 mg/ Syringe 10 mls @ 5 mls/min 03/05/25 12:00 03/05/25 11:34 IV 03/12/25 11:59 5 mls/min Q24H LITA Administration Protocol Insulin Aspart 0 units 03/05/25 11:30 03/06/25 09:42 Insulin Aspart Per Unit Charge SC 04/04/25 11:29 2 units ACHS LITA Administration Insulin Glargine 20 units 03/06/25 09:00 03/06/25 09:43 Lantus Per Unit Charge SC 04/05/25 08:59 20 units BID LITA Administration Losartan Potassium 50 mg 03/04/25 14:00 03/06/25 10:20 Losartan Potassium 50 Mg Tab PO 04/03/25 13:59 50 mg DAILY LITA Administration Metoprolol Tartrate 50 mg 03/04/25 21:00 03/06/25 10:20 Metoprolol Tartrate 50 Mg Tab PO 04/03/25 20:59 50 mg BID LITA Administration Morphine Sulfate 2 mg 03/04/25 12:23 03/06/25 09:22 Morphine Sulfate 2 Mg/Ml Carp IV 03/18/25 12:22 2 mg Q4H PRN Administration Pain Ondansetron HCl 4 mg 03/04/25 13:38 03/06/25 09:30 Ondansetron Inj 2 Mg/Ml 2 Ml Vial IV 04/03/25 13:37 4 mg Q6H PRN Administration Nausea And Vomiting
[2025-03-06] MEDS: KETOROLAC TROMETHAMINE 15 MG/ML VIAL IV ONE (17:47)
[2025-03-06] MEDS: ACETAMINOPHEN 500 MG TAB PO SCH (21:17)
[2025-03-07 08:16] VITALS: RESP 18
[2025-03-07] MEDS ORDERED: MoRPHine SULFATE 4 MG/ML 1 ML CARP\\VIAL IV PRN (08:29)
[2025-03-07 11:29] VITALS: TEMP 98.1; O2SAT 99
--- NOTE | 2025-03-07 15:13 | Discharge Summary ---
Discharge Summary Date of Service March 07, 2025 Principal Dx & Hospital Course #1 = Principal Diagnosis (1) Submental space infection: (2) Diabetes: (3) HTN (hypertension): Plan Ms. Poe is a 44 year old woman that presents to the ED after experiencing worsening submental pain and spreading of a wound that spontaneously, starting on Friday 03/02. Patient evaluated by Dr. Gr--there are no plans for I&D. Culture with MRSA. Patient underwent 3 days of IV antibiotics. Patient discharged with 7 days linezolid. Patient understands instructions such as gentle massage and warm compress on day of discharge, patient reports feeling notably improved. Wound examined and draining as expected. #Submental phlegmon with lymphadenopathy #MRSA Leukocytosis: 13.99 Lactate normal 1.6 SpO2 97%, continuous pulse ox monitoring Soft Tissue CT: Moderate submental inflammation with a 2.7 cm focus of soft tissue thickening suggestive of phlegmon. No rim-enhancing fluid collection to suggest abscess. Associated cellulitis. 6 mm left hypodense focus within the dermis may represent a drainage site. No drainable fluid collection. This represents an infectious process. Although no definitive source, this may be odontogenic in etiology. A primary skin infection could appear similar. Several mildly enlarged cervical lymph nodes. These are likely reactive. A follow-up neck CT in 3 months to ensure resolution is recommended. contact precations Dr Gr: no intervention Discharged on linezolid for MRSA and skin keyana coverage #Insulin Dependent Diabetes, Type 2: Chronic Unknown A1c; 5.9% Takes Lantus 9 units AM/PM Takes Humalog Kwikpen 9-15-25 units SQ TID with meals ACHS FSBS while inpt #HTN: Chronic takes Losartan, Metoprolol and HCTZ; continue Notes For Next Care Provider Medication Changes From Visit Linezolid 600 mg bid x 7 days Zofran prn Oxycodone 5mg q8h for severe pain Admission HPI Per Admitting Provider Pt is a 44 year old female that presents to the ED after experiencing worsening submental pain and spreading of a wound that spontaneously occured on Monday03/02/25. She originally went to [facility] and underwent a CT and was given a dose of IV antibiotics and sent home on Bactrim, which she has taken three doses. reportedly, no abscess was identified on the CT scan. Originally the red spot under the chin has progressed into a submental soft tissue erythematous and swollen area. She reports that the wound has worsened over the past 48 hours. She did show photos which revealed that the swelling and wound has progressed. Past medical history includes insulin-dependent diabetes type 2, and HTN. In the ED she was started on IV Zosyn for Pseudomonas coverage and she received 1 L NS. She received Morphine for pain control. Mild leukocytosis 13.99 otherwise labs unremarkable. No elevated lactate, no elevated procalcitonin. Soft tissue neck CT revealed: moderate submental inflammation with a 2.7 cm focus of soft tissue thickening suggestive of phlegmon. No rim-enhancing fluid collection to suggest abscess. Associated cellulitis. 6 mm left hypodense focus within the dermis may represent a drainage site. No drainable fluid collection. This represents an infectious process. Although no definitive source, this may be odontogenic in etiology. A primary skin infection could appear similar. Several mildly enlarged cervical lymph nodes. These are likely reactive. A follow-up neck CT in 3 months to ensure resolution is recommended. Reports tobacco use 1 ppd, no alcohol or recreational drug use. On examination, she No signs of airway compromise at this time, SpO2 97% on room air. Patient will be admitted for further evaluation and management of her soft tissue cellulitis with pain control, blood cultures, MRSA coverage with IV Dapto and oromaxillary surgery consult. Please see A/P for further details. Admission Exam Per Admitting Provider Neuro: AAOx4, PERRLA, no aphagia, memory changes, CNII-XII grossly intact. (+) submental lymphadenopathy HEENT: head normocephalic, moist mucus membranes CV: S1/S2, (-) M/G/R, (-) edema, cap refill < 3 seconds Resp: Lungs CTA in all potter. On RA GI: Abdomen S/NT/ND, Ax4 bowel sounds, (-) CVA tenderness Musculoskeletal: 5/5 B/L UE strength, 5/5 B/L LE strength. No gait disturbance Skin: (-) rashes , (+) erythema (+) open eraser sized wound with minimal drainage. Psych: euthymic mood Discharge Exam Constitutional WD/WN, vitals as above Respiratory normal respiratory effort, lungs clear to auscultation Cardiovascular RRR, no murmur, no edema Gastrointestinal (Abdomen) normal bowel sounds, soft, nontender, no hepatosplenomegaly Updated Medication List Medication Instructions Recorded Confirmed Type Ventolin HFA 90 mcg PO Q4H PRN SOB 03/04/25 03/04/25 History hydrochlorothiazide 25 mg tablet 25 mg PO DAILY 03/04/25 03/04/25 History insulin glargine 100 unit/mL (3 20 unit subcut BID 03/04/25 03/05/25 History mL) subcutaneous pen (Lantus Solostar U-100 Insulin) insulin lispro 100 unit/mL See Rx Instructions .Route .COMPLEX 03/04/25 03/05/25 History subcutaneous pen (Humalog KwikPen (U-100) Insulin) losartan 50 mg tablet 50 mg PO DAILY 03/04/25 03/04/25 History metoprolol tartrate 50 mg tablet 50 mg PO BID 03/04/25 03/04/25 History tirzepatide 15 mg/0.5 mL 15 mg subcut WK 03/04/25 03/04/25 History subcutaneous pen injector (Lela) linezolid 600 mg tablet 600 mg PO BID #14 tabs 03/07/25 Rx ondansetron 4 mg disintegrating 4 mg PO DAILY PRN nausea and 03/07/25 Rx tablet vomiting 4 days #20 tabs oxycodone 5 mg tablet 5 mg PO Q8H PRN pain #10 tabs 03/07/25 Rx Hospital Stay Data Consultations 03/04/25 10:58 ED Decision to Admit Stat 03/04/25 14:00 Consult Oromaxillofacial Surgery Routine Diagnostic Imagining Performed 03/04/25 08:29 CT soft tissue neck w con Stat Pending Results Patient Have Any Pending Studies at Discharge: No Discharge Instructions Given to Patient (Per Discharging Provider) You were admitted for MRSA infection of your chin. You were treated with IV antibiotics Continue warm compresses to the area and gentle massage You will continue a course of oral antibiotics. Linezolid 600mg, two times a day, for 7 more days starting tomorrow morning Please keep your hands washed and the area clean. Please follow up with Dr. Gr Total Time Total Time Spent Total Time Spent (In Minutes): 45
[2025-03-07 15:14] VITALS: BP 123/81; PULSE 96
--- NOTE | 2025-03-08 14:57 | Progress Note ---
Date of Service March 06, 2025 I was told by the nursing staff that Michele started to have some scant drainage this morning. I told her to continue with the massage and heat and I will stop by and see her later in the afternoon as I am done with my OR cases. When I saw her later this afternoon she was draining a lot more. There was good drainage coming out. The overall cellulitis has now organized and is starting to drain. I cultured the specimen but I do feel that we are dealing with a MRSA infection. I cleaned up the site and redressed it. To massage the facial area the chin area as well as the submental area. Hopefully as long as the drainage continues flowing we could discharge her home with oral antibiotics as per the medical team with follow-up in my office. I reviewed case management with Dr Tucker and we will plan discharge tomorrow with follow up with my office. Assessment & Plan Admission and Anticipated Discharge Date Admission Date: March 04, 2025 PG Care Time/CCT Total # of Minutes Spent Total Time Spent with Patient: Total time spent is greater than 50% in coordination of care (as documented) at patient's floor/unit and/or counseling patient: Coding Level of Care Code None
--- NOTE | 2025-03-08 15:05 | Progress Note ---
Date of Service March 07, 2025 Cammy is feeling better this morning drainage has ceased somewhat but is still flowing with massage. There is no need to open up any further pockets of infection as there is good drainage and improvement noted. I feel that she is ready for discharge but to continue using the massage and the heat and the antibiotics as prescribed by Dr. Tucker. She was given contact information for my office and will be calling my office to set up follow-up within a within 7 to 10 days. I advised her that if the swelling should become worse she should call my office immediately for further evaluation. I reviewed postoperative instructions especially massaging and heat keeping the area clean and to call my office for follow-up Plan Ms. Poe is a 44 year old woman that presents to the ED after experiencing worsening submental pain and spreading of a wound that spontaneously, starting on Friday 03/02. Patient evaluated by Dr. Gr--there are no plans for I&D. Culture with MRSA. Patient underwent 3 days of IV antibiotics. Patient discharged with 7 days linezolid. Patient understands instructions such as gentle massage and warm compress on day of discharge, patient reports feeling notably improved. Wound examined and draining as expected. #Submental phlegmon with lymphadenopathy #MRSA Leukocytosis: 13.99 Lactate normal 1.[address]: Moderate submental inflammation with a 2.7 cm focus of soft tissue thickening suggestive of phlegmon. No rim-enhancing fluid collection to suggest abscess. Associated cellulitis. 6 mm left hypodense focus within the dermis may represent a drainage site. No drainable fluid collection. This represents an infectious process. Although no definitive source, this may be odontogenic in etiology. A primary skin infection could appear similar. Several mildly enlarged cervical lymph nodes. These are likely reactive. A follow-up neck CT in 3 months to ensure resolution is recommended. contact precautions Dr Gr: no intervention Discharged on linezolid for MRSA and skin keyana coverage Assessment & Plan Admission and Anticipated Discharge Date Admission Date: March 04, 2025 PG Care Time/CCT Total # of Minutes Spent Total Time Spent with Patient: Total time spent is greater than 50% in coordination of care (as documented) at patient's floor/unit and/or counseling patient: Coding Level of Care Code 16851 SUB INP/OBS CARE 1/25MIN
== END 2025-03-07 15:48 | disposition home or self-care (01) | DRG 159 ==
LOC: ED 07:46 → EDINP 12:18 → SUATTDRO 12:18 → INTOOBSV 12:18 → 2N 16:45

== ENCOUNTER 2025-04-20 21:41 | Observation (INO) ==
[2025-04-20] MEDS ORDERED: VANCOMYCIN CONSULT ACTIVE PRN (21:54)
--- NOTE | 2025-04-20 21:58 | Emergency Department Note ---
Impression & Plan Abscess of multiple sites, MRSA (methicillin resistant Staphylococcus aureus), Cellulitis ED Provider Note NAME: BRIE READ AGE: 44 SEX: F : 1980 ARRIVES VIA: Walk-In INFORMANT: Patient ED PROVIDER(S): Roland Sanchez DO CHIEF COMPLAINT: Redness and swelling HPI: Patient is a 44-year-old female with a past medical history of hypertension, diabetes, asthma and MRSA who presents to the ER for redness and swelling of several areas within her groin. She denies any fevers. She notes symptoms started about a week ago. She denies any headache or change in vision. No chest pain or shortness of breath. No nausea, vomiting, or diarrhea. She mitts to multiple areas of erythema in the suprapubic area after shaving. Denies any dysuria, urgency or frequency. No other exacerbating or remitting factors. ADDITIONAL HISTORY OBTAINED: Per HPI Chronic Medical/Social Conditions Affecting Care: Per HPI PAST MEDICAL HISTORY:See Below PAST SURGICAL HISTORY:See Below FAMILY HISTORY:See Below SOCIAL HISTORY:See Below HOME MEDICATIONS:See Below ALLERGIES:See Below VITALS:See Below PHYSICAL EXAMINATION: GENERAL: Sitting up in bed, alert, well appearing, well nourished, no distress, non-toxic EYE EXAM: normal conjunctiva. OROPHARYNX: mucous membranes are moist NECK: supple, no nuchal rigidity, no adenopathy, non-tender LUNGS: Clear to auscultation. Normal chest wall mechanics HEART: no murmurs, S1 normal and S2 normal ABDOMEN: abdomen soft, non-tender, normo-active bowel sounds, no masses, no rebound or guarding. SKIN: Left thigh with an area of 2 x 4 cm area of erythema and induration with surrounding cellulitis. Suprapubic region with an area of about 6 x 4 cm erythema and a 2 x 2 area of induration. UPPER EXTREMITIES: upper extremities are grossly normal. LOWER EXTREMITIES: No pitting edema. NEURO EXAM: Normal sensorium, cranial nerves II-XII grossly intact, normal speech, no gross weakness of arms, no gross weakness of legs. MEDICAL DECISION MAKING: Patient is a 44-year-old female who presents to the ER for pain in her right groin and combination with swelling and redness. IV was established and blood work is obtained. Labs show mild leukocytosis of 12,000. No significant anemia. BMP with slightly elevated glucose at 151. LFTs bilirubin was unremarkable. Lipase was normal. Patient had 2 abscesses which were drained in the groin with surrounding cellulitis. Did have purulent drainage removed from both. She was given IV vancomycin and IV Rocephin. Due to the surrounding cellulitis and the extensiveness of the abscesses discussed case with the hospitalist for further evaluation management treatment. Consults/Care Managements Discussions: Per MDM Triage Nursing notes reviewed. Limited review of prior medical records performed Vital Signs: reviewed and remarkable for HTN Differential diagnosis: Cellulitis, abscess, MRSA infection, DVT, necrotizing fasciitis, dermatitis, drug eruption, allergic reaction, as well as other pathologies. ER treatment provided: See below Diagnostics interpreted by me include EKG and cardiac monitoring as listed below: -Cardiac Monitoring: An order was placed for continuous cardiac monitoring. The monitor shows a rate of 90 with sinus rhythm. -ECG: none -Laboratory studies:Interpreted by me as stated above in MDM and shown below. Imaging studies: Xrays: As interpreted by me:none CTs show: none Bedside ultrasound shows left thigh with an abscess/fluid collection and surrounding cobblestoning Bedside ultrasound of suprapubic region shows small fluid collection Procedures: Procedure #1 Incision & Drainage Indication: Abscess. Location: Left thigh Verbal consent was obtained after the risks and benefits were explained, including but not limited to bleeding, scarring, infection, pain, and bone/joint/nerve damage. At this time, the risks of the procedure are less than the risks of NOT performing the procedure. A time out was taken and the correct patient and site identified. The skin was prepped with betadine and a sterile field set. The wound was anesthetized with let gel and 2 ml of 1% lidocaine without epinephrine. The abscess cavity was entered with a number 11 blade and green purulent material expressed. Copious irrigation was performed using saline. The wound was explored for foreign bodies and none found. Debridement was not performed. Detailed wound care instructions and signs and symptoms of worsening infection reviewed with the patient. No complications and the patient tolerated the procedure well. Procedure #2 Incision & Drainage Indication: Abscess. Location: Suprapubic region Verbal consent was obtained after the risks and benefits were explained, including but not limited to bleeding, scarring, infection, pain, and bone/joint/nerve damage. At this time, the risks of the procedure are less than the risks of NOT performing the procedure. A time out was taken and the correct patient and site identified. The skin was prepped with betadine and a sterile field set. The wound was anesthetized with let gel and 2 ml of 1% lidocaine without epinephrine. The abscess cavity was entered with a number 11 blade and green purulent material expressed. Copious irrigation was performed using saline. The wound was explored for foreign bodies and none found. Debridement was not performed. Detailed wound care instructions and signs and symptoms of worsening infection reviewed with the patient. No complications and the patient tolerated the procedure well. Critical Care: None Past Med/Surg History Problem List (Updated 04/20/25 @ 23:19 by Roland Sanchez DO) Cellulitis (Acute) Abscess of multiple sites (Acute) HTN (hypertension) Diabetes Asthma Arthritis MRSA (methicillin resistant Staphylococcus aureus) (Acute) Hypothyroidism Medical History (Updated 04/20/25 @ 23:19 by Roland Sanchez DO) Submental space infection Cellulitis Adverse reaction to anesthetic agent Hard time waking up No pertinent family history Surgical History (Updated 03/25/25 @ 10:14 by Antonina aMrin RN) H/O colonoscopy S/P tonsillectomy and adenoidectomy H/O: hysterectomy (2009) Previous section (2008) 2004 & 2008 Family History (Updated 03/25/25 @ 10:16 by Antonina Marin RN) Father Cancer Diabetes Hypertension Mother Diabetes Hypertension Social History (Updated 03/25/25 @ 10:17 by Antonina Marin RN) Smoking Status: Never smoker Tobacco Type: Cigarettes Hx Alcohol Use: No Hx Substance Use: No Preferred Language: Indonesian Communication Ability: Effective 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 Beliefs That Will Affect Care: None marital status: Current Living Situation: Significant Other current occupational status: employed current occupation: Store Operations Manager How many Children do You have: 3 Feels Safe at Home: Yes Diet: regular during the past year weight has: decreased > 10 lbs Assistive Devices: None Allergies Allergies Allergy/AdvReac Type Severity Reaction Status Date / Time levofloxacin [From Levaquin] Allergy Mild Rash Verified 03/25/25 10:10 Home Meds Home Medications Medication Instructions Recorded Confirmed hydrochlorothiazide 25 mg tablet 25 mg PO DAILY 03/04/25 04/20/25 insulin glargine 100 unit/mL (3 20 unit subcut BID 03/04/25 03/25/25 mL) subcutaneous pen (Lantus Solostar U-100 Insulin) insulin lispro 100 unit/mL See Rx Instructions .Route .COMPLEX 03/04/25 03/25/25 subcutaneous pen (Humalog KwikPen (U-100) Insulin) losartan 50 mg tablet 50 mg PO DAILY 03/04/25 04/20/25 metoprolol tartrate 50 mg tablet 50 mg PO BID 03/04/25 03/25/25 tirzepatide 15 mg/0.5 mL 15 mg subcut WK 03/04/25 04/20/25 subcutaneous pen injector (Mounjaro) levothyroxine 100 mcg capsule 100 mcg PO DAILY 03/25/25 04/20/25 albuterol sulfate 90 mcg/actuation 2 puff inhalation Q4 PRN Shortness 04/20/25 04/20/25 aerosol inhaler Of Breath Previous Rx's Medication Instructions Recorded linezolid 600 mg tablet 600 mg PO BID #14 tabs 03/07/25 Results & Data (ED) Vital Signs Vital Signs - 24 hr 04/20/25 21:41 04/20/25 21:42 04/20/25 21:59 Temperature 36.5 C Temperature Source Temporal Artery Scan Pulse Rate 98 H 93 H Pulse Rate [Right Finger] 87 Respiratory Rate 18 16 Respiratory Effort / Characteristics Non-Labored Spontaneous Respiratory Depth Normal Respiratory Pattern Regular Blood Pressure 196/94 H Blood Pressure [Right Arm] 168/103 H Blood Pressure Mean 128 Blood Pressure Mean [Right Arm] 124 Pulse Oximetry 99 100 Oxygen Delivery Method Room Air Room Air Sepsis Recent Fever Within 48 Hours No Sepsis New/Unexplained Change in Mental Status No Sepsis Action Taken by Nursing No Action Required 04/20/25 22:04 Temperature Temperature Source Pulse Rate Pulse Rate [Right Finger] Respiratory Rate Respiratory Effort / Characteristics Respiratory Depth Respiratory Pattern Blood Pressure Blood Pressure [Right Arm] Blood Pressure Mean Blood Pressure Mean [Right Arm] Pulse Oximetry 99 Oxygen Delivery Method Room Air Sepsis Recent Fever Within 48 Hours Sepsis New/Unexplained Change in Mental Status Sepsis Action Taken by Nursing Laboratory Data 04/20/25 22:06 04/20/25 22:06 Lab Results 04/20/25 Range/Units 22:06 WBC 12.00 H (4.8-10.8) K/ul RBC 3.91 L (4.20-5.40) M/uL Hgb 12.1 (12.0-16.0) g/dL Hct 35.5 L (37.0-47.0) % MCV 90.8 (80.0-100.0) fL MCH 30.9 (25.0-34.0) pg MCHC 34.1 (32.0-36.0) g/dL RDW Std Deviation 45.4 (36.4-46.3) fL RDW Coeff of Yanet 13.7 (11.5-14.5) % Plt Count 333 (130-400) K/uL MPV 10.2 (9.4-12.4) fL Immature Gran % (Auto) 0.3 % Neut % (Auto) 64.3 % Lymph % (Auto) 25.0 % [place] % (Auto) 6.9 % Eos % (Auto) 2.8 % Baso % (Auto) 0.7 % Neut # (Auto) 7.72 H (1.40-6.50) K/uL Lymph # (Auto) 3.00 (1.20-3.40) K/uL [place] # (Auto) 0.83 H (0.11-0.59) K/uL Eos # (Auto) 0.33 (0.00-0.50) K/uL Baso # (Auto) 0.08 (0.00-0.20) K/uL Immature Gran # (Auto) 0.04 (0.01-0.20) K/uL Sodium 140 (136-145) mmol/L Potassium 4.2 (3.5-5.1) mmol/L Chloride 106 (98-107) mmol/L Carbon Dioxide 27 (21-32) mmol/L Anion Gap 7 (3-11) BUN 19 (6-23) mg/dl Creatinine 0.74 (0.6-1.2) mg/dl Est Cr Clr Drug Dosing 95.6 ml/min eGFR 102.25 BUN/Creatinine Ratio 25.7 H (10-20) Glucose 151 H (70-99(Fasting)) mg/dl Calcium 8.7 (8.6-10.3) mg/dl Total Bilirubin 0.5 (0.2-1.0) mg/dl AST 12 L (13-39) U/L ALT 9 (7-52) U/L Alkaline Phosphatase 76 (34-104) U/L Total Protein 6.8 (6.0-8.3) gm/dl Albumin 4.3 (3.4-5.0) gm/dl Globulin 2.5 (2.5-4.0) gm/dl Albumin/Globulin Ratio 1.7 (0.9-2) Lipase 17 (11-82) U/L Administered Medications Vancomycin HCl 1,500 mg/ (Sodium Chloride) 530 mls @ 200 mls/hr IV NOW ONE Stop: 04/21/25 00:32 Last Admin: 04/20/25 22:58 Dose: 200 mls/hr Documented By: SEYMOUR Discontinued Medications Ceftriaxone Sodium (Rocephin) 2,000 mg in 50 mls @ 100 mls/hr IV NOW STA Stop: 04/20/25 22:23 Last Infusion: 04/20/25 22:45 Dose: Infused Documented By: racquel Admin: 04/20/25 22:14 Dose: 100 mls/hr Documented By: JILL Ketorolac Tromethamine (Ketorolac Tromethamine 15 Mg/Ml Vial) 15 mg IV NOW ONE Stop: 04/20/25 22:54 Last Admin: 04/20/25 22:57 Dose: 15 mg Documented By: SEYMOUR Lidocaine (Lidocaine/Epineph/Tetracaine 1 Ea Syr) 1 each EXT NOW STA Stop: 04/20/25 21:55 Last Admin: 04/20/25 22:15 Dose: 1 each Documented By: JILL Lidocaine/Epinephrine (Lidocaine 1%/Epinephrine 1:100,000 50 Ml Vial) 10 ml INFIL NOW ONE Stop: 04/20/25 22:32 Last Admin: 04/20/25 22:44 Dose: 10 ml Documented By: SAURAV Discharge Plan Visit Data Chief Complaint: Infection Stated Complaint: POSSIBLE INFECTION - PREV. MRSA ED Provider: Roland Sanchez Discharge Problem: Abscess of multiple sites, MRSA (methicillin resistant Staphylococcus aureus), Cellulitis Condition: Fair Forms Stand Alone Forms: My [facility] Prescriptions Prescriptions: No Action levothyroxine 100 mcg capsule 100 mcg PO DAILY Mounjaro 15 mg/0.5 mL pen injector 15 mg SUBCUT WK metoprolol tartrate 50 mg Tablet 50 mg PO BID losartan 50 mg Tablet 50 mg PO DAILY hydrochlorothiazide 25 mg Tablet 25 mg PO DAILY insulin glargine [Lantus Solostar U-100 Insulin] 100 unit/mL (3 mL) insulin pen 20 unit SUBCUT BID insulin lispro [Humalog KwikPen Insulin] 100 unit/mL Insulin Pen See Rx Instructions .ROUTE .COMPLEX Rx Instructions: Adjusts does according to food intake/BG values. Typically takes a few units with meals. Max 10 units. linezolid 600 mg tablet 600 mg PO BID Qty: 14 0RF albuterol sulfate 90 mcg/actuation Hfa Aerosol Inhaler 2 puff INHALATION Q4 PRN (Reason: Shortness Of Breath) Referrals Referrals: Emanuel Koenig DO [Primary Care Provider] - Discharge Problem: Cellulitis Qualifiers: Site of cellulitis: unspecified site Qualified Code(s): L03.90 - Cellulitis, unspecified
[2025-04-20] MEDS: cefTRIAXone SODIUM 2,000 MG/50 ML BAG IV STA (22:14)
[2025-04-20] MEDS: LIDOCAINE/EPINEPH/TETRACAINE 1 EA SYR EXT STA (22:15)
[2025-04-20 22:21] LABS: Hematocrit (blood only) 35.5 % (37.0-47.0); Hemoglobin 12.1 g/dL (12.0-16.0); Immature Granulocytes # (auto) 0.04 K/uL (0.01-0.20); Immature Granulocytes % (auto) 0.3 %; Mean Corpuscular Hemoglobin 30.9 pg (25.0-34.0); Mean Corpuscular Volume 90.8 fL (80.0-100.0); Platelet Count 333 K/uL (130-400); RDW Standard Deviation 45.4 fL (36.4-46.3); Red Blood Count 3.91 M/uL (4.20-5.40); White Blood Count 12.00 K/ul (4.8-10.8)
[2025-04-20 22:39] LABS: Alanine Aminotransferase 9.0 U/L (7-52); Albumin Globulin Ratio 1.7 (0.9-2); Albumin Level 4.3 gm/dl (3.4-5.0); Alkaline Phosphatase 76.0 U/L (34-104); Anion Gap 7.0 (3-11); Bilirubin,Total 0.5 mg/dl (0.2-1.0); Blood Urea Nitrogen 19.0 mg/dl (6-23); Calcium 8.7 mg/dl (8.6-10.3); Carbon Dioxide 27.0 mmol/L (21-32); Chloride 106.0 mmol/L (98-107); Creatinine Clr Calc Pharmacy 95.6 ml/min; Globulin 2.5 gm/dl (2.5-4.0); Glucose 151.0 mg/dl (70-99(Fasting)); Lipase 17.0 U/L (11-82); Potassium 4.2 mmol/L (3.5-5.1); Sodium 140.0 mmol/L (136-145); Total Protein 6.8 gm/dl (6.0-8.3)
[2025-04-20] MEDS: LIDOCAINE 1%/EPINEPHRINE 1:100,000 50 ML VIAL INFIL ONE (22:44)
[2025-04-20] MEDS: KETOROLAC TROMETHAMINE 15 MG/ML VIAL IV ONE (22:57)
[2025-04-20] MEDS: VANCOMYCIN HCL 1,500 MG in SODIUM CHLORIDE 0.9% 500 ML IV ONE (22:58)
[2025-04-20] MEDS: MoRPHine SULFATE 4 MG/ML 1 ML CARP\\VIAL IV STA (23:54)
--- NOTE | 2025-04-21 01:59 | History & Physical Report ---
Date of Service April 21, 2025 Assessment & Plan (1) Cellulitis: Plan: 44-year-old female with past medical history significant for diabetes, hypertension, hypothyroidism presents with suprapubic and left thigh infection and cellulitis. Patient states initially started as pimples after shaving. But got progressively worse and having lot of pain. In the ER abscess drained from the suprapubic region and left thigh region. And she was given Vanco and Ro cephin. Denies any fevers. Denies any diarrhea or constipation. Micturating okay. No chest pain or shortness of breath. No cough. No headache. No runny nose or sore throat. Resting comfortably and hemodynamically stable. Patient was admitted on March 04, 2025 for submental space infection. Was seen by Dr. Lewis and no intervention was planned. Her cultures grew MRSA. She was discharged on Zyvox on 03/07/2025. Patient states she had 2 courses of Zyvox after discharge and the infection resolved. No prior history of MRSA infection as per patient. Cellulitis Of suprapubic and left thigh region Small abscess was drained by ER Will follow cultures Received Rocephin and Vanco in the ER Will continue with Vanco and Zosyn May need nasal Bactroban and chlorhexidine bath to prevent repeated MRSA infections Diabetes Continue home Lantus Sliding scale Will monitor Hypothyroidism On Synthyroid Hypertension On losartan and metoprolol tartrate and hydrochlorothiazide Will monitor DVT prophylaxis Lovenox Disposition Medical floor Full code History of Present Illness Chief Complaint: Suprapubic and left thigh infection and cellulitis Primary Care Provider: Emanuel Koenig DO 44-year-old female with past medical history significant for diabetes, hypertension, hypothyroidism presents with suprapubic and left thigh infection and cellulitis. Patient states initially started as pimples after shaving. But got progressively worse and having lot of pain. In the ER abscess drained from the suprapubic region and left thigh region. And she was given Vanco and Rocephin. Denies any fevers. Denies any diarrhea or constipation. Micturating okay. No chest pain or shortness of breath. No cough. No headache. No runny nose or sore throat. Resting comfortably and hemodynamically stable. Patient was admitted on March 04, 2025 for submental space infection. Was seen by Dr. Lewis and no intervention was planned. Her cultures grew MRSA. She was discharged on Zyvox on 03/07/2025. Patient states she had 2 courses of Zyvox after discharge and the infection resolved. No prior history of MRSA infection as per patient. Past medical history as mentioned above. Past surgical history. 2 C-sections. Hysterectomy. Social history. States stopped smoking since last admit. Prior to that smoked about a pack a day for couple of years. No alcohol use. No drug use. Family history. Father had throat cancer. Mother and father has diabetes. Allergies Allergy/AdvReac Type Severity Reaction Status Date / Time levofloxacin [From [facility]] Allergy Mild Rash Verified 03/25/25 10:10 Home Medications Medication Instructions Recorded Confirmed Type hydrochlorothiazide 25 mg tablet 25 mg PO QAM 03/04/25 04/20/25 History insulin glargine 100 unit/mL (3 20 unit subcut BID 03/04/25 04/20/25 History mL) subcutaneous pen (Lantus Solostar U-100 Insulin) insulin lispro 100 unit/mL See Rx Instructions .Route .COMPLEX 03/04/25 04/20/25 History subcutaneous pen (Humalog KwikPen (U-100) Insulin) losartan 50 mg tablet 50 mg PO QAM 03/04/25 04/20/25 History metoprolol tartrate 50 mg tablet 50 mg PO HS 03/04/25 04/20/25 History tirzepatide 15 mg/0.5 mL 15 mg subcut WK 03/04/25 04/20/25 History subcutaneous pen injector (Lela) levothyroxine 100 mcg capsule 100 mcg PO DAILYBB 03/25/25 04/20/25 History Lactobacillus acidophilus 10 10,000 mmu cells PO QAM 04/20/25 04/20/25 History billion cell capsule (Probiotic) albuterol sulfate 90 mcg/actuation 2 puff inhalation Q4 PRN Shortness 04/20/25 04/20/25 History aerosol inhaler Of Breath docusate sodium 100 mg capsule 100 mg PO QAM 04/20/25 04/20/25 History (Stool Softener) metoprolol tartrate 100 mg tablet 100 mg PO QAM 04/20/25 04/20/25 History Past Med/Surg History Problem List (Updated 04/20/25 @ 23:19 by Roland Sanchez DO) Cellulitis (Acute) Abscess of multiple sites (Acute) HTN (hypertension) Diabetes Asthma Arthritis MRSA (methicillin resistant Staphylococcus aureus) (Acute) Hypothyroidism Medical History (Updated 04/20/25 @ 23:19 by Roland Sanchez DO) Submental space infection Cellulitis Adverse reaction to anesthetic agent Hard time waking up No pertinent family history Surgical History (Updated 03/25/25 @ 10:14 by Antonina Marin RN) H/O colonoscopy S/P tonsillectomy and adenoidectomy H/O: hysterectomy (2009) Previous section (2008) 2004 & 2008 Family History (Updated 03/25/25 @ 10:16 by Antonina Marin RN) Father Cancer Diabetes Hypertension Mother Diabetes Hypertension Social History (Updated 03/25/25 @ 10:17 by Antonina Marin RN) Smoking Status: Never smoker Tobacco Type: Cigarettes Hx Alcohol Use: No Hx Substance Use: No Preferred Language: Macedonian Communication Ability: Effective Bolt Maker Required: No Beliefs That Will Affect Care: None marital status: Current Living Situation: Significant Other and Other Current Living Situation Comment: Lives with Boyfriend and son current occupational status: employed current occupation: Desktop Technician How many Children do You have: 3 Other Information That Helps Us Care for You: No Feels Safe at Home: Yes Safety Concerns: Feels Safe At This Time Diet: regular during the past year weight has: decreased > 10 lbs Assistive Devices: Glasses Review of Systems Review of Systems: All systems reviewed & are unremarkable except as noted in HPI & below Physical Exam Physical Exam: General- Not in distress Head- atraumatic Eyes- PERRL. ENT- oropharynx clear Neck- supple, no JVD. Lungs- clear to auscultation no wheezing or crackles Heart- regular rhythm; no murmur, no gallop. Abdomen- normal bowel sounds, soft, no distension Extremities- no pretibial edema, moves extremities Neuro- alert, oriented PERRL, EOMI; no facial palsy; no dysarthria; moves extremities Skin- drained pimple seen on suprapubic region and anterior aspect of left thigh with surrounding erythema on quick inspection Results & Data Results & Data Vital Signs (Past 12 Hours) Vital Signs Temp Pulse Pulse Resp BP BP Pulse Ox 04/21/25 00:00 100 H 18 151/93 H 98 04/20/25 22:04 99 04/20/25 21:59 93 H 04/20/25 21:42 36.5 C 98 H 16 196/94 H 100 04/20/25 21:41 87 18 168/103 H 99 O2 Del Method 04/21/25 00:00 Room Air 04/20/25 22:04 Room Air 04/20/25 21:59 04/20/25 21:42 Room Air 04/20/25 21:41 Room Air Diagnostic Findings Laboratory Results WBC 12.00 K/ul (4.8-10.8) H 04/20/25 22:06 RBC 3.91 M/uL (4.20-5.40) L 04/20/25 22:06 Hgb 12.1 g/dL (12.0-16.0) 04/20/25 22:06 Hct 35.5 % (37.0-47.0) L 04/20/25 22:06 MCV 90.8 fL (80.0-100.0) 04/20/25 22:06 MCH 30.9 pg (25.0-34.0) 04/20/25 22:06 MCHC 34.1 g/dL (32.0-36.0) 04/20/25 22:06 RDW Std Deviation 45.4 fL (36.4-46.3) 04/20/25 22:06 RDW Coeff of Yanet 13.7 % (11.5-14.5) 04/20/25 22:06 Plt Count 333 K/uL (130-400) 04/20/25 22:06 MPV 10.2 fL (9.4-12.4) 04/20/25 22:06 Immature Gran % (Auto) 0.3 % 04/20/25 22:06 Neut % (Auto) 64.3 % 04/20/25 22:06 Lymph % (Auto) 25.0 % 04/20/25 22:06 [place] % (Auto) 6.9 % 04/20/25 22:06 Eos % (Auto) 2.8 % 04/20/25 22:06 Baso % (Auto) 0.7 % 04/20/25 22:06 Neut # (Auto) 7.72 K/uL (1.40-6.50) H 04/20/25 22:06 Lymph # (Auto) 3.00 K/uL (1.20-3.40) 04/20/25 22:06 [place] # (Auto) 0.83 K/uL (0.11-0.59) H 04/20/25 22:06 Eos # (Auto) 0.33 K/uL (0.00-0.50) 04/20/25 22:06 Baso # (Auto) 0.08 K/uL (0.00-0.20) 04/20/25 22:06 Immature Gran # (Auto) 0.04 K/uL (0.01-0.20) 04/20/25 22:06 Sodium 140 mmol/L (136-145) 04/20/25 22:06 Potassium 4.2 mmol/L (3.5-5.1) 04/20/25 22:06 Chloride 106 mmol/L (98-107) 04/20/25 22:06 Carbon Dioxide 27 mmol/L (21-32) 04/20/25 22:06 Anion Gap 7 (3-11) 04/20/25 22:06 BUN 19 mg/dl (6-23) 04/20/25 22:06 Creatinine 0.74 mg/dl (0.6-1.2) 04/20/25 22:06 Est Cr Clr Drug Dosing 95.6 ml/min 04/20/25 22:06 eGFR 102.25 04/20/25 22:06 BUN/Creatinine Ratio 25.7 (10-20) H 04/20/25 22:06 Glucose 151 mg/dl (70-99(Fasting)) H 04/20/25 22:06 Calcium 8.7 mg/dl (8.6-10.3) 04/20/25 22:06 Total Bilirubin 0.5 mg/dl (0.2-1.0) 04/20/25 22:06 AST 12 U/L (13-39) L 04/20/25 22:06 ALT 9 U/L (7-52) 04/20/25 22:06 Alkaline Phosphatase 76 U/L (34-104) 04/20/25 22:06 Total Protein 6.8 gm/dl (6.0-8.3) 04/20/25 22:06 Albumin 4.3 gm/dl (3.4-5.0) 04/20/25 22:06 Globulin 2.5 gm/dl (2.5-4.0) 04/20/25 22:06 Albumin/Globulin Ratio 1.7 (0.9-2) 04/20/25 22:06 Lipase 17 U/L (11-82) 04/20/25 22:06 Code Status & VTE Plan VTE Prophylaxis Plan VTE Prophylaxis will be ordered: Yes (1) Cellulitis Site of cellulitis: unspecified site Qualified Code(s): L03.90 - Cellulitis, unspecified
[2025-04-21] MEDS ORDERED: POLYETHYLENE (MIRALAX) 17 GM PACK PO PRN (02:37)
[2025-04-21] MEDS ORDERED: DEXTROSE 50% 50 ML SYRINGE IV PRN (02:37)
[2025-04-21] MEDS ORDERED: GLUCOSE 10 TAB/TUBE PO PRN (02:37)
[2025-04-21] MEDS ORDERED: ALBUTEROL HFA 8 GM INHALER INH PRN (02:37)
[2025-04-21] MEDS ORDERED: GLUCOSE 40% GEL 15 GM TUBE PO PRN (02:37)
[2025-04-21] MEDS ORDERED: GLUCAGON FOR INJ 1 MG VIAL SQ PRN (02:37)
[2025-04-21] MEDS ORDERED: CARBOHYDRATES FOR HYPOGLYCEMIA PO PRN (02:37)
[2025-04-21] MEDS: SODIUM CHLORIDE 0.9% 1,000 ML IV SCH (03:20)
[2025-04-21] MEDS: PIPERACILLIN/TAZOBACTAM 4.5 GM/100 ML BAG IV STA (03:36)
[2025-04-21] MEDS: LEVOTHYROXINE SODIUM 100 MCG TABLET PO SCH (05:35)
[2025-04-21] MEDS: ACETAMINOPHEN 325 MG TAB PO PRN (05:36)
[2025-04-21] MEDS: VANCOMYCIN HCL 1,250 MG in SODIUM CHLORIDE 0.9% 250 ML IV SCH (05:37)
[2025-04-21 07:19] LABS: Hematocrit (blood only) 31.4 % (37.0-47.0); Hemoglobin 10.8 g/dL (12.0-16.0); Immature Granulocytes # (auto) 0.04 K/uL (0.01-0.20); Immature Granulocytes % (auto) 0.4 %; Mean Corpuscular Hemoglobin 31.5 pg (25.0-34.0); Mean Corpuscular Volume 91.5 fL (80.0-100.0); Platelet Count 259 K/uL (130-400); RDW Standard Deviation 45.9 fL (36.4-46.3); Red Blood Count 3.43 M/uL (4.20-5.40); White Blood Count 8.95 K/ul (4.8-10.8)
[2025-04-21 07:35] LABS: Hemoglobin A1C 5.4 % (4.5-5.6)
[2025-04-21 07:39] LABS: Anion Gap 5.0 (3-11); Blood Urea Nitrogen 15.0 mg/dl (6-23); Calcium 8.0 mg/dl (8.6-10.3); Carbon Dioxide 27.0 mmol/L (21-32); Chloride 109.0 mmol/L (98-107); Creatinine Clr Calc Pharmacy 109.4 ml/min; Glucose 103.0 mg/dl (70-99(Fasting)); Magnesium 1.8 mg/dl (1.7-2.4); Potassium 3.8 mmol/L (3.5-5.1); Sodium 141.0 mmol/L (136-145)
--- NOTE | 2025-04-21 08:19 | Pharmacy Report ---
Pharmacy PK ABX Note - Date of Service April 21, 2025 - Assessment and Plan Assessment 44 year old F receiving vancomycin and piperacilln/tazobactam for treatment of skin and soft tissue infection. * Patient presents 04/20/25 with abscess from suprapubic region and left thigh - drained in ER * Received 2 courses of linezolid for submental space infection in 02/2025 (cultures grew MRSA) * WBC 8.95 from 12.0 on admission * SCr 0.65 today (estimated CrCl 109 mL/min) - around baseline * Afebrile Day # 1 of antimicrobial therapy. Plan Vancomycin * Loading dose: 1500 mg IV x 1 (given 04/20 2258) * Maintenance dose: 1250 mg IV every 12 hours * Regimen is predicted to achieve target AUC/PHYLICIA of 400-600 mg/L.hr * Trough level ordered for: 04/22/25 prior to 0600 dose Pharmacy will continue to follow and will adjust dose/frequency as necessary. Thank you. Pharmacy has transitioned to AUC monitoring for vancomycin. AUC/PHYLICIA is the preferred PK/PD target and is associated with decreased risk of nephrotoxicity compared to traditional trough targets.
[2025-04-21] MEDS: INSULIN ASPART PER UNIT CHARGE SC SCH (08:29)
[2025-04-21] MEDS: LANTUS PER UNIT CHARGE SQ SCH (08:29)
[2025-04-21] MEDS: ENOXAPARIN INJ 40 MG/0.4 ML SYR SQ SCH (08:34)
[2025-04-21] MEDS: DOCUSATE SODIUM 100 MG CAP PO SCH (08:34)
[2025-04-21] MEDS: hydroCHLOROthiazide 25 MG TAB PO SCH (08:35)
[2025-04-21] MEDS: ADVANCED PROBIOTIC 625 MG CAPSULE PO SCH (08:36)
[2025-04-21] MEDS: METOPROLOL TARTRATE 100 MG TAB PO SCH (08:36)
[2025-04-21] MEDS: LOSARTAN POTASSIUM 50 MG TAB PO SCH (08:37)
[2025-04-21] MEDS: PIPERACILLIN/TAZOBACTAM 4.5 GM/100 ML BAG IV SCH (10:22)
[2025-04-21] MEDS: KETOROLAC TROMETHAMINE 15 MG/ML VIAL IV PRN (11:02)
[2025-04-21] MEDS: SODIUM CHLORIDE 0.65% NA SOLN 45 ML (OCEAN) PRN (11:27)
--- NOTE | 2025-04-21 14:42 | Communication Note ---
Date of Service: April 21, 2025 Patient seen and examined Reports ER performed I&D on suprapubic and left thigh abscess Continue IV antibiotics for now Follow up infectious workup Other plans as detailed in H/P this AM
[2025-04-21] MEDS: METOPROLOL TARTRATE 50 MG TAB PO SCH (21:54)
[2025-04-22 06:23] LABS: Hematocrit (blood only) 33.6 % (37.0-47.0); Hemoglobin 11.6 g/dL (12.0-16.0); Mean Corpuscular Hemoglobin 31.0 pg (25.0-34.0); Mean Corpuscular Volume 89.8 fL (80.0-100.0); Platelet Count 321 K/uL (130-400); RDW Standard Deviation 44.4 fL (36.4-46.3); Red Blood Count 3.74 M/uL (4.20-5.40); White Blood Count 9.02 K/ul (4.8-10.8)
[2025-04-22 06:53] LABS: Anion Gap 6.0 (3-11); Blood Urea Nitrogen 16.0 mg/dl (6-23); Calcium 8.5 mg/dl (8.6-10.3); Carbon Dioxide 27.0 mmol/L (21-32); Chloride 104.0 mmol/L (98-107); Creatinine Clr Calc Pharmacy 92.3 ml/min; Glucose 99.0 mg/dl (70-99(Fasting)); Potassium 3.5 mmol/L (3.5-5.1); Sodium 137.0 mmol/L (136-145)
[2025-04-22] MEDS: VANCOMYCIN LEVEL ONE (07:06)
--- NOTE | 2025-04-22 09:55 | Hospitalist Progress Note ---
Date of Service April 22, 2025 Assessment & Plan (1) Cellulitis: Plan: 44-year-old female with past medical history significant for diabetes, hypertension, hypothyroidism presents with suprapubic and left thigh infection and cellulitis. Patient states initially started as pimples after shaving. But got progressively worse and having lot of pain. Patient was admitted on March 04, 2025 for submental space infection. Was seen by Dr. Lewis and no intervention was planned. Her cultures grew MRSA. She was discharged on Zyvox on 03/07/2025. Patient states she had 2 courses of Zyvox after discharge and the infection resolved Cellulitis Abscess, small In the ER abscess drained from the suprapubic region and left thigh region. Wound culture growing MRSA In view of new lesions, being diabetic; will continue vanc and zosyn for now Wound care Diabetes mellitus HbA1c is 5.4, well controlled Continue home Lantus Sliding scale Monitor Hypothyroidism On Synthroid Hypertension On losartan and metoprolol tartrate and hydrochlorothiazide Will monitor DVT prophylaxis- Lovenox Full code I spent a total of 45 minutes coordinating, documenting and providing care for this patient excluding time spent in performance of separately billed services Admission and Anticipated Discharge Date Admission Date: April 21, 2025 Subjective Patient seen and examined Reports pain at infection site. Noted some new spots on lower abdomen and left trunk No fever, chills, nausea, vomiting No other complaints Physical Exam Constitutional: + well hydrated; no acute distress Eyes: PERRL, conjunctivae normal, anicteric sclerae ENMT: external ear and nose normal, oropharynx normal Respiratory: normal respiratory effort, lungs clear to auscultation Cardiovascular: Rate/Rhythm: regular rate and regular rhythm Gastrointestinal (Abdomen): normal bowel sounds, soft, nontender, no hepatosplenomegaly Musculoskeletal: No pedal edema Skin: Dressing over suprapubic and left thigh site. Maculopapular lesions with erythema in suprapubic, left thigh area Neurologic: PERRL, EOMI, accommodation nl, no face palsy, no dysarthria Psychiatric: A+Ox3, euthymic affect Results & Data Results & Data Vital Signs (Past 12 Hours) Vital Signs Temp Pulse Resp BP Pulse Ox O2 Del Method 04/22/25 07:32 36.9 C 71 18 114/76 96 Room Air Laboratory Results Abnormal lab results 04/21/25 04/22/25 Range/Units 20:16 05:51 RBC 3.74 L (4.20-5.40) M/uL Hgb 11.6 L (12.0-16.0) g/dL Hct 33.6 L (37.0-47.0) % BUN/Creatinine Ratio 20.8 H (10-20) POC Glucose 117 H (70-99) mg/dl Calcium 8.5 L (8.6-10.3) mg/dl (1) Cellulitis Site of cellulitis: unspecified site Qualified Code(s): L03.90 - Cellulitis, unspecified
--- NOTE | 2025-04-22 13:57 | Pharmacy Report ---
Pharmacy PK ABX Note - Date of Service April 22, 2025 - Assessment and Plan Assessment 04/22 * Trough level 10.8 mcg/mL today correlates with AUC/PHYLICIA within goal range 04/21 44 year old F receiving vancomycin and piperacilln/tazobactam for treatment of skin and soft tissue infection. * Patient presents 04/20/25 with abscess from suprapubic region and left thigh - drained in ER * Received 2 courses of linezolid for submental space infection in 02/2025 (cultures grew MRSA) * WBC 8.95 from 12.0 on admission * SCr 0.65 today (estimated CrCl 109 mL/min) - around baseline * Afebrile Day # 1 of antimicrobial therapy. Plan Vancomycin * Loading dose: 1500 mg IV x 1 (given 04/20 2258) * Maintenance dose: 1250 mg IV every 12 hours * Regimen is predicted to achieve target AUC/PHYLICIA of 400-600 mg/L.hr * Trough level to be ordered in 3-4 days or sooner with renal function changes Pharmacy will continue to follow and will adjust dose/frequency as necessary. Thank you. Pharmacy has transitioned to AUC monitoring for vancomycin. AUC/PHYLICIA is the preferred PK/PD target and is associated with decreased risk of nephrotoxicity compared to traditional trough targets.
[2025-04-23 08:12] LABS: Hematocrit (blood only) 32.6 % (37.0-47.0); Hemoglobin 11.2 g/dL (12.0-16.0); Mean Corpuscular Hemoglobin 30.7 pg (25.0-34.0); Mean Corpuscular Volume 89.3 fL (80.0-100.0); Platelet Count 312 K/uL (130-400); RDW Standard Deviation 44.3 fL (36.4-46.3); Red Blood Count 3.65 M/uL (4.20-5.40); White Blood Count 7.80 K/ul (4.8-10.8)
[2025-04-23 08:41] LABS: Anion Gap 5.0 (3-11); Blood Urea Nitrogen 20.0 mg/dl (6-23); Calcium 8.6 mg/dl (8.6-10.3); Carbon Dioxide 30.0 mmol/L (21-32); Chloride 104.0 mmol/L (98-107); Creatinine Clr Calc Pharmacy 66.5 ml/min; Glucose 87.0 mg/dl (70-99(Fasting)); Potassium 3.7 mmol/L (3.5-5.1); Sodium 139.0 mmol/L (136-145)
--- NOTE | 2025-04-23 13:14 | Pharmacy Report ---
Pharmacy PK ABX Note - Date of Service April 23, 2025 - Assessment and Plan Assessment 04/23 * SCr started trending up so another vanco level was obtained today which was 16.2mcg/mL which extrapolates to an AUC above the goal range. The maintenance dose has been decreased. 04/22 * Trough level 10.8 mcg/mL today correlates with AUC/PHYLICIA within goal range 04/21 44 year old F receiving vancomycin and piperacilln/tazobactam for treatment of skin and soft tissue infection. * Patient presents 04/20/25 with abscess from suprapubic region and left thigh - drained in ER * Received 2 courses of linezolid for submental space infection in 02/2025 (cultures grew MRSA) * WBC 8.95 from 12.0 on admission * SCr 0.65 today (estimated CrCl 109 mL/min) - around baseline * Afebrile Day # 1 of antimicrobial therapy. Plan Vancomycin * Vanco level of 16.2mcg/mL from today extrapolates to an AUC of 683mg/L.hr * decrease maintenance dose: 1000 mg IV every 12 hours * Regimen is predicted to achieve target AUC/PHYLICIA of 400-600 mg/L.hr * Trough level to be ordered in 3-4 days or sooner with renal function changes Zosyn was discontinued today Pharmacy will continue to follow and will adjust dose/frequency as necessary. Thank you. Pharmacy has transitioned to AUC monitoring for vancomycin. AUC/PHYLICIA is the preferred PK/PD target and is associated with decreased risk of nephrotoxicity compared to traditional trough targets.
--- NOTE | 2025-04-23 13:37 | Hospitalist Progress Note ---
Date of Service April 23, 2025 Assessment & Plan (1) Cellulitis: Plan: 44-year-old female with past medical history significant for diabetes, hypertension, hypothyroidism presents with suprapubic and left thigh infection and cellulitis. Patient states initially started as pimples after shaving. But got progressively worse and having lot of pain. Patient was admitted on March 04, 2025 for submental space infection. Was seen by Dr. Lewis and no interv ention was planned. Her cultures grew MRSA. She was discharged on Zyvox on 03/07/2025. Patient states she had 2 courses of Zyvox after discharge and the infection resolved #Cellulitis -Numerous abscesses on suprapublic and L thigh region -S/p I&D on largest suprapubic and L thigh abscesses in ED -No fever or leukocytosis -Wound cx growing MRSA Plan -Continue IV vancomycin for today. can deescalate to PO once there is more clinical improvement -She seems to be colonized with MRSA. will try hibiclens scrub and nasal screen. If positive, will add mupirocin -If no improvement, will ask general surgery to evaluate for further I&D -Monitor temp, WBC, renal function while on vanc -Follow vanc levels #IDDM -BG acceptable -Continue home insulin regimen -SSI BGM ACHS #HTN -Continue home BP regimen #Hypothyroidism -Synthroid I spent a total of 55 minutes coordinating, documenting, and providing care for this patient excluding time spent in the performance of separately billed services. This included personally reviewing all current laboratories and imaging studies, medical reconciliation, outpatient chart review and discussion with specialists Admission and Anticipated Discharge Date Admission Date: April 21, 2025 Subjective Feeling well but still with numerous abscesses. Patient denies F/C, CP, palpitations, SOB, dyspnea, abd pain, N/V/D. Seen and examined with Patient's RN present Physical Exam Physical Exam: Vitals and labs reviewed General: Well appearing, NAD HEENT: EOMI, PERRLA Neck: Supple Cardiac: RRR no rubs gallops or murmurs Lungs: CTA no rhonchi wheezing or rales Abd: S NT ND BS positive : Deffered MSK: Full ROM. No obvious deformities Ext: No Edema cyanosis Skin: Warm, Dry Neuro: AOx3 No focal deficits. Psych: Normal Mood Results & Data Results & Data Vital Signs (Past 12 Hours) Vital Signs Temp Pulse Resp BP Pulse Ox O2 Del Method 04/23/25 07:16 36.5 C 73 18 108/70 97 Room Air Laboratory Results Abnormal lab results 04/22/25 04/23/25 Range/Units 20:14 07:45 RBC 3.65 L (4.20-5.40) M/uL Hgb 11.2 L (12.0-16.0) g/dL Hct 32.6 L (37.0-47.0) % POC Glucose 100 H (70-99) mg/dl (1) Cellulitis Site of cellulitis: unspecified site Qualified Code(s): L03.90 - Cellulitis, unspecified
[2025-04-23] MEDS: ONDANSETRON INJ 2 MG/ML 2 ML VIAL IV PRN (14:03)
--- NOTE | 2025-04-23 19:16 | Surgery Consultation ---
Date of Consultation April 23, 2025 Assessment & Plan (1) Abscess of multiple sites: The patient is a 44-year-old female with a PMH of DM, HTN, hypothyroidism who presented to the emergency department on Monday evening with concerns of suprapubic and left thigh wounds/infection a few days after shaving in that area. The patient was recently admitted back in February for a similar wound under her chin and she was diagnosed with a submental space infection and her cultures did grow MRSA. The patient did have a bedside I&D in the emergency room on Monday to both the suprapubic and left thigh wounds and per documentation there was purulent drainage expelled and she was started on IV antibiotics and admitted to the medical service due to surrounding cellulitis at the sites. The patient was seen and evaluated this evening for possible additional I&D of the these areas. The patient does have multiple very small lesions on her right flank, abdomen, lateral suprapubic area, and left axilla that resemble a small pimple/infected hair follicle and these areas do not require any drainage. Recommend warm compresses and local wound care. As far as the two additional areas of concern of the suprapubic area and left anterior thigh, both of these sites have already been drained a few days ago. The suprapubic region is currently still drainage purulent/blood tinged drainage and do not feel as though additional opening would be necessary at this time. The left anterior thigh region does have some slight induration however the area is very small and unsure if drainage would truly be beneficial at this time. I did offer to open the left thigh wound up a little more at bedside this evening but the patient is hesitant about undergoing another bedside procedure due to panicking in the emergency department during the first I&D. If the area becomes larger/more indurated despite antibiotics, could potentially order a US to see if there is a fluid collection that could be amendable to drainage but for now recommend continuing local wound care and antibiotics. Can also add warm compresses to the areas. Surgery will sign off for now, please re-consult with any questions or concerns. (2) Cellulitis: History of Present Illness Reason for Consultation: multiple superficial skin wounds/abscesses History of Present Illness The patient is a 44-year-old female with a PMH of DM, HTN, hypothyroidism who presented to the emergency department on Monday evening with concerns of suprapubic and left thigh wounds/infection. The patient states that she had shaven in that area and shortly afterwards noticed what thought were pimples however after a few days the areas had become worse and more painful. To note, the patient was admitted to the hospital back in February for a similar wound under her chin and she was evaluated by ENT and was diagnosed with a submental space infection and her cultures did grow MRSA. At that time she was treated conservatively with antibiotics and did not require any drainage. The patient states that the new areas of concern do look similar to the one she had last month, however these had gotten worse which ultimately prompted her to come in f or evaluation. The patient did have a bedside I&D in the emergency room on Monday to both the suprapubic and left thigh wounds and per documentation there was purulent drainage expelled and she was started on IV antibiotics and admitted to the medical service due to surrounding cellulitis at the sites. The patient has been seen by wound care team today and they had recommended general surgery evaluate for any possible additional I&D of the areas. The patient was seen and evaluated at bedside this evening, she is resting comfortably in bed, VSS, and is nontoxic appearing. The patient is noted to have multiple small lesions on the right flank, abdomen, suprapubic region and the left axilla with slight surrounding erythema that resemble a small pimple/ hair follicle that got infected. The patient also has a larger area of concern at the suprapubic region and left anterior thigh that were both previously drained. The dressings were removed to these areas and suprapubic wound does have some active purulent/blood tinged drainage and the left anterior thigh area with no apparent drainage at this time. Allergies Allergy/AdvReac Type Severity Reaction Status Date / Time levofloxacin [From Levaquin] Allergy Mild Rash Verified 03/25/25 10:10 Home Medications Medication Instructions Recorded Confirmed Type hydrochlorothiazide 25 mg tablet 25 mg PO QAM 03/04/25 04/20/25 History insulin glargine 100 unit/mL (3 20 unit subcut BID 03/04/25 04/20/25 History mL) subcutaneous pen (Lantus Solostar U-100 Insulin) insulin lispro 100 unit/mL See Rx Instructions .Route .COMPLEX 03/04/25 04/20/25 History subcutaneous pen (Humalog KwikPen (U-100) Insulin) losartan 50 mg tablet 50 mg PO QAM 03/04/25 04/20/25 History metoprolol tartrate 50 mg tablet 50 mg PO HS 03/04/25 04/20/25 History tirzepatide 15 mg/0.5 mL 15 mg subcut WK 03/04/25 04/20/25 History subcutaneous pen injector (Mounjaro) levothyroxine 100 mcg capsule 100 mcg PO DAILYBB 03/25/25 04/20/25 History Lactobacillus acidophilus 10 10,000 mmu cells PO QAM 04/20/25 04/20/25 History billion cell capsule (Probiotic) albuterol sulfate 90 mcg/actuation 2 puff inhalation Q4 PRN Shortness 04/20/25 04/20/25 History aerosol inhaler Of Breath docusate sodium 100 mg capsule 100 mg PO QAM 04/20/25 04/20/25 History (Stool Softener) metoprolol tartrate 100 mg tablet 100 mg PO QAM 04/20/25 04/20/25 History Patient History Medical History (Updated 04/20/25 @ 23:19 by Roland Sanchez DO) Submental space infection Cellulitis Adverse reaction to anesthetic agent Hard time waking up No pertinent family history Surgical History (Updated 03/25/25 @ 10:14 by Antonina Marin RN) H/O colonoscopy S/P tonsillectomy and adenoidectomy H/O: hysterectomy (2009) Previous section (2008) 2004 & 2008 Family History (Updated 03/25/25 @ 10:16 by Antonina Marin RN) Father Cancer Diabetes Hypertension Mother Diabetes Hypertension Social History (Updated 03/25/25 @ 10:17 by Antonina Marin RN) Smoking Status: Never smoker Tobacco Type: Cigarettes Hx Alcohol Use: No Hx Substance Use: No Preferred Language: [place] Communication Ability: Effective Is Analyst Required: No Beliefs That Will Affect Care: None marital status: Current Living Situation: Significant Other and Other Current Living Situation Comment: Lives with Boyfriend and son current occupational status: employed current occupation: [employer] How many Children do You have: 3 Feels Safe at Home: Yes Diet: regular during the past year weight has: decreased > 10 lbs Assistive Devices: None Review of Systems Review of Systems: All systems reviewed & are unremarkable except as noted in HPI & below Physical Exam Constitutional: WD/WN, vitals as above Respiratory: normal respiratory effort, lungs clear to auscultation Cardiovascular: Rate/Rhythm: regular rate Gastrointestinal (Abdomen): normal bowel sounds, soft, nontender, no hepatosplenomegaly Skin: Multiple small lesions on the right flank, abdomen, suprapubic region and the left axilla with slight surrounding erythema that resemble a small pimple/ hair follicle that appear infected, however no active drainage and no areas of fluctuance or induction at these areas. Suprapubic region that was previously drained (measuring roughly 2cm) - dressing removed and there is active purulent/blood tinged drainage with some overlying erythema and edema but no fluctuance or induration. Left anterior thigh wound that was previously drained (measuring roughly 1cm) - dressing removed and area does have some edema over the area, no active drainage appreciated. Results & Data Vital Signs (Past 12 Hours) Vital Signs Temp Pulse Resp BP Pulse Ox O2 Del Method 04/23/25 15:08 36.8 C 70 16 132/82 98 Room Air PG Care Time/CCT Total # of Minutes Spent Total Time Spent with Patient: Total time spent is greater than 50% in coordination of care (as documented) at patient's floor/unit and/or counseling patient: [place] [address] Office/OBS Consult Lvl 1 Patient Type New History Problem Focused Exam Problem Focused Medical Decision Making Straight Forward Diagnoses Abscess of multiple sites L02.91 Cellulitis L03.90 Site of cellulitis: unspecified site (2) Cellulitis Site of cellulitis: unspecified site Qualified Code(s): L03.90 - Cellulitis, unspecified
[2025-04-23] MEDS: VANCOMYCIN HCL / NSS 1,000 MG/270 ML BAG IV SCH (21:14)
[2025-04-24 06:56] LABS: Hematocrit (blood only) 36.9 % (37.0-47.0); Hemoglobin 12.8 g/dL (12.0-16.0); Mean Corpuscular Hemoglobin 30.6 pg (25.0-34.0); Mean Corpuscular Volume 88.3 fL (80.0-100.0); Platelet Count 346 K/uL (130-400); RDW Standard Deviation 43.1 fL (36.4-46.3); Red Blood Count 4.18 M/uL (4.20-5.40); White Blood Count 9.93 K/ul (4.8-10.8)
[2025-04-24 07:17] LABS: Anion Gap 8.0 (3-11); Blood Urea Nitrogen 17.0 mg/dl (6-23); Calcium 9.3 mg/dl (8.6-10.3); Carbon Dioxide 29.0 mmol/L (21-32); Chloride 102.0 mmol/L (98-107); Creatinine Clr Calc Pharmacy 82.7 ml/min; Glucose 82.0 mg/dl (70-99(Fasting)); Potassium 4.0 mmol/L (3.5-5.1); Sodium 139.0 mmol/L (136-145)
--- NOTE | 2025-04-24 09:54 | Hospitalist Progress Note ---
Date of Service April 24, 2025 Assessment & Plan (1) Cellulitis: Plan: 44-year-old female with past medical history significant for diabetes, hypertension, hypothyroidism presents with suprapubic and left thigh infection and cellulitis. Patient states initially started as pimples after shaving. But got progressively worse and having lot of pain. Patient was admitted on March 04, 2025 for submental space infection. Was seen by Dr. Lewis and no interv ention was planned. Her cultures grew MRSA. She was discharged on Zyvox on 03/07/2025. Patient states she had 2 courses of Zyvox after discharge and the infection resolved #Cellulitis -Numerous abscesses on suprapublic and L thigh region -S/p I&D on largest suprapubic and L thigh abscesses in ED -No fever or leukocytosis -Wound cx from 03/05 grew MRSA. No cultures were taken from I&D in the ED this admission but likely MRSA as well -Improving erythema and drainage from abscesses today -General surgery evaluated on 04/23, one I&D was offered on the L thigh but patient declined Plan -Continue IV vancomycin for today. can deescalate to PO once there is more clinical improvement -She has OP wound care appt in april -Monitor temp, WBC, renal function while on vanc -Follow vanc levels #IDDM -BG acceptable -Continue home insulin regimen -SSI BGM ACHS #HTN -Continue home BP regimen #Hypothyroidism -Synthroid I spent a total of 51 minutes coordinating, documenting, and providing care for this patient excluding time spent in the performance of separately billed services. This included personally reviewing all current laboratories and imaging studies, medical reconciliation, outpatient chart review and discussion with specialists Admission and Anticipated Discharge Date Admission Date: April 21, 2025 Subjective Feeling well but still with numerous abscesses. SHe believes they are improved today. Patient denies F/C, CP, palpitations, SOB, dyspnea, abd pain, N/V/D. Seen and examined with Patient's RN present Physical Exam Physical Exam: Vitals and labs reviewed General: Well appearing, NAD HEENT: EOMI, PERRLA Neck: Supple Cardiac: RRR no rubs gallops or murmurs Lungs: CTA no rhonchi wheezing or rales Abd: S NT ND BS positive : Deffered MSK: Full ROM. No obvious deformities Ext: No Edema cyanosis Skin: Warm, Dry numerous abscesses on suprapubic area and L thigh. improved today Neuro: AOx3 No focal deficits. Psych: Normal Mood Results & Data Results & Data Vital Signs (Past 12 Hours) Vital Signs Temp Pulse Resp BP Pulse Ox O2 Del Method 04/24/25 07:02 36.8 C 61 16 131/81 97 Room Air 04/23/25 23:13 36.9 C 69 20 130/77 96 Room Air Laboratory Results Abnormal lab results 04/24/25 Range/Units 06:32 RBC 4.18 L (4.20-5.40) M/uL Hct 36.9 L (37.0-47.0) % (1) Cellulitis Site of cellulitis: unspecified site Qualified Code(s): L03.90 - Cellulitis, unspecified
[2025-04-24 15:39] VITALS: RESP 18; O2SAT 100
[2025-04-25 07:41] LABS: Hematocrit (blood only) 35.0 % (37.0-47.0); Hemoglobin 12.6 g/dL (12.0-16.0); Mean Corpuscular Hemoglobin 32.0 pg (25.0-34.0); Mean Corpuscular Volume 88.8 fL (80.0-100.0); Platelet Count 337 K/uL (130-400); RDW Standard Deviation 43.4 fL (36.4-46.3); Red Blood Count 3.94 M/uL (4.20-5.40); White Blood Count 9.29 K/ul (4.8-10.8)
[2025-04-25 08:00] LABS: Anion Gap 8.0 (3-11); Blood Urea Nitrogen 20.0 mg/dl (6-23); Calcium 8.5 mg/dl (8.6-10.3); Carbon Dioxide 29.0 mmol/L (21-32); Chloride 103.0 mmol/L (98-107); Creatinine Clr Calc Pharmacy 84.6 ml/min; Glucose 96.0 mg/dl (70-99(Fasting)); Potassium 3.8 mmol/L (3.5-5.1); Sodium 140.0 mmol/L (136-145)
[2025-04-25 08:49] VITALS: BP 148/82; PULSE 68; TEMP 98.6
--- NOTE | 2025-04-25 11:00 | Discharge Summary ---
Discharge Summary Date of Service April 25, 2025 Principal Dx & Hospital Course #1 = Principal Diagnosis (1) Cellulitis: 44-year-old female with past medical history significant for diabetes, hypertension, hypothyroidism presents with suprapubic and left thigh infection and cellulitis. Patient states initially started as pimples after shaving. But got progressively worse and having lot of pain. Patient was admitted on March 04, 2025 for submental space infection. Was seen by Dr. Lewis and no intervention was planned. Her cultures grew MRSA. She was discharged on Zyvox on 03/07/2025. Patient states she had 2 courses of Zyvox after discharge and the infection resolved. She had two of the abscesses drained in the ED. no cultures were ordered or taken by the ED team. She was started on IV vanc. wound care and general surgery were consulted. General surgery offered to drain another abscess on her thigh but patient declined. She had slow but continued improvement daily. Today, the erythema surrounding her abscesses has essentially resolved. there was no drainage today. She has been afebrile without leukocytosis. She wishes to go home today. Today is her 6th day of vanc, will complete a 7 day course of abx with bactrim tomorrow. She has a wound care appt scheduled on may 07. Vitals and labs are stable on day of discharge. #Cellulitis -Numerous abscesses on suprapublic and L thigh region -S/p I&D on largest suprapubic and L thigh abscesses in ED -No fever or leukocytosis -Wound cx from 03/05 grew MRSA. No cultures were taken from I&D in the ED this admission but likely MRSA as well -Improving erythema and drainage from abscesses today -General surgery evaluated on 04/23, one I&D was offered on the L thigh but patient declined #IDDM -BG acceptable -Continue home insulin regimen -SSI BGM ACHS #HTN -Continue home BP regimen #Hypothyroidism -Synthroid I spent a total of 41 minutes coordinating, documenting, and providing care for this patient excluding time spent in the performance of separately billed services. This included personally reviewing all current laboratories and imaging studies, medical reconciliation, outpatient chart review and discussion with specialists Notes For Next Care Provider Medication Changes From Visit bactrim through 04/26 Admission HPI Per Admitting Provider 44-year-old female with past medical history significant for diabetes, hypertension, hypothyroidism presents with suprapubic and left thigh infection and cellulitis. Patient states initially started as pimples after shaving. But got progressively worse and having lot of pain. In the ER abscess drained from the suprapubic region and left thigh region. And she was given Vanco and Rocephin. Denies any fevers. Denies any diarrhea or constipation. Micturating okay. No chest pain or shortness of breath. No cough. No headache. No runny nose or sore throat. Resting comfortably and hemodynamically stable. Patient was admitted on March 04, 2025 for submental space infection. Was seen by Dr. Lewis and no intervention was planned. Her cultures grew MRSA. She was discharged on Zyvox on 03/07/2025. Patient states she had 2 courses of Zyvox after discharge and the infection resolved. No prior history of MRSA infection as per patient. Past medical history as mentioned above. Past surgical history. 2 C-sections. Hysterectomy. Social history. States stopped smoking since last admit. Prior to that smoked about a pack a day for couple of years. No alcohol use. No drug use. Family history. Father had throat cancer. Mother and father has diabetes. Discharge Exam Vitals and labs reviewed Exam completed with RN at bedside General: Well appearing, NAD HEENT: EOMI, PERRLA Neck: Supple Cardiac: RRR no rubs gallops or murmurs Lungs: CTA no rhonchi wheezing or rales Abd: S NT ND BS positive : Deffered MSK: Full ROM. No obvious deformities Ext: No Edema cyanosis Skin: Warm, Dry numerous abscesses on suprapubic area and L thigh. improved today. almost complete resolution of surrounding erythema. no drainaged. Neuro: AOx3 No focal deficits. Psych: Normal Mood Updated Medication List Medication Instructions Recorded Confirmed Type hydrochlorothiazide 25 mg tablet 25 mg PO QAM 03/04/25 04/20/25 History insulin glargine 100 unit/mL (3 20 unit subcut BID 03/04/25 04/20/25 History mL) subcutaneous pen (Lantus Solostar U-100 Insulin) insulin lispro 100 unit/mL See Rx Instructions .Route .COMPLEX 03/04/25 04/20/25 History subcutaneous pen (Humalog KwikPen (U-100) Insulin) losartan 50 mg tablet 50 mg PO QAM 03/04/25 04/20/25 History metoprolol tartrate 50 mg tablet 50 mg PO HS 03/04/25 04/20/25 History tirzepatide 15 mg/0.5 mL 15 mg subcut WK 03/04/25 04/20/25 History subcutaneous pen injector (Mounjaro) levothyroxine 100 mcg capsule 100 mcg PO DAILYBB 03/25/25 04/20/25 History Lactobacillus acidophilus 10 10,000 mmu cells PO QAM 04/20/25 04/20/25 History billion cell capsule (Probiotic) albuterol sulfate 90 mcg/actuation 2 puff inhalation Q4 PRN Shortness 04/20/25 04/20/25 History aerosol inhaler Of Breath docusate sodium 100 mg capsule 100 mg PO QAM 04/20/25 04/20/25 History (Stool Softener) metoprolol tartrate 100 mg tablet 100 mg PO QAM 04/20/25 04/20/25 History sulfamethoxazole 800 1 tab PO BID 1 day #2 tabs 04/25/25 Rx mg-trimethoprim 160 mg tablet (Bactrim DS) Hospital Stay Data Consultations 04/20/25 22:53 ED Decision to Admit Stat 04/23/25 15:04 Consult General Surgery Routine Pending Results Patient Have Any Pending Studies at Discharge: No Discharge Instructions Given to Patient (Per Discharging Provider) Please follow upw ith wound care May 07, at 0830 am. Continue to change your dressings daily at home. Nofity your PCP or return to ED if you develop fevers, chills, worsening redness, discharge in any of your wounds. Take bactrim just tomorrow. Your blood pressure has been intermittently elevated during your stay; please follow up with your PCP in 1-2 weeks. Total Time Total Time Spent Total Time Spent (In Minutes): 41
[2025-04-26] MEDS ORDERED: VANCOMYCIN LEVEL ONE (08:30)
== END 2025-04-25 13:00 | disposition home or self-care (01) | DRG 603 ==
LOC: ED 21:41 → SUATTDRO 04-21 01:52 → INTOOBSV 04-21 01:52 → 3W 04-21 01:52